=== PATIENT | female | born 1975 | race Caucasian/White ===

== ENCOUNTER 2016-11-11 17:59 | Emergency (ER) | payer BC ==
--- NOTE | 2016-11-11 18:29 | ED ---
Skin/Abscess/FB HPI - General Chief complaint: Skin/Abscess/Foreign Body Stated complaint: abcess Time Seen by Provider: 11/11/16 18:18 Source: patient, RN notes reviewed Mode of arrival: ambulatory Limitations: no limitations - History of Present Illness Initial comments: Patient is a 40-year-old female with chief complaint of abscess underneath her left axilla. Patient reports that she was seen approximately a year ago in the emergency department for the same abscess. Patient reports that she was placed on Bactrim and felt that it was getting better. Patient states that periodically throughout the last year some noticed that the abscess likes to recur and she usually can express the infection out at home by herself. Patient reports that at this time yesterday she was able to express some of the pus however she's feeling slightly feverish and very rundown. Patient reports that she has not taken any Motrin or Tylenol. Patient states that she's had no recent antibiotics for this. She states that she has full range of motion of the arm, but states it is painful whenever she applies pressure over the area. Patient denies any recent chills, shortness of breath, chest pain, back pain, abdominal pain, nausea vomiting, numbness or tingling, dysuria or hematuria, constipation or diarrhea, headaches or visual changes, or any other current symptoms - Related Data Home Medications Medication Instructions Recorded Confirmed Acetaminophen Tab [Tylenol Tab] 650 mg PO Q4H PRN 11/11/16 11/11/16 metFORMIN HCL [Glucophage] 500 mg PO BID 11/11/16 11/11/16 Previous Rx's Medication Instructions Recorded Acetaminophen-Codeine 300-30mg 1 tab PO Q6H PRN #15 tablet 11/11/16 [Tylenol #3] Sulfamethox-Tmp 800-160Mg [Bactrim 2 tab PO Q12HR #40 tab 11/11/16 DS 800-160 mg] Allergies Allergy/AdvReac Type Severity Reaction Status Date / Time No Known Allergies Allergy Verified 11/11/16 18:28 Review of Systems ROS Statement: Those systems with pertinent positive or pertinent negative responses have been documented in the HPI. ROS Other: All systems not noted in ROS Statement are negative. Past Medical History Past Medical History: Diabetes Mellitus History of Any Multi-Drug Resistant Organisms: None Reported Past Surgical History: Cholecystectomy Past Psychological History: No Psychological Hx Reported Smoking Status: Light tobacco smoker Past Alcohol Use History: None Reported Past Drug Use History: None Reported General Exam - General Exam Comments Initial Comments: Patient is a pleasant 40-year-old female with no acute distress. Limitations: no limitations General appearance: alert, in no apparent distress Head exam: Present: atraumatic, normocephalic, normal inspection Eye exam: Present: normal appearance, PERRL, EOMI. Absent: scleral icterus, conjunctival injection, periorbital swelling ENT exam: Present: normal exam, mucous membranes moist Neck exam: Present: normal inspection. Absent: tenderness, meningismus, lymphadenopathy Respiratory exam: Present: normal lung sounds bilaterally. Absent: respiratory distress, wheezes, rales, rhonchi, stridor Cardiovascular Exam: Present: regular rate, normal rhythm, normal heart sounds. Absent: systolic murmur, diastolic murmur, rubs, gallop, clicks GI/Abdominal exam: Present: soft, normal bowel sounds. Absent: distended, tenderness, guarding, rebound, rigid Extremities exam: Present: normal inspection, full ROM, normal capillary refill , other (3 cm abscess over the left axilla.). Absent: tenderness, pedal edema, joint swelling, calf tenderness Back exam: Present: normal inspection Neurological exam: Present: alert, oriented X3, CN II-XII intact Psychiatric exam: Present: normal affect, normal mood Skin exam: Present: warm, dry, intact, normal color, other (3 cm erythematous abscess underneath the left axilla.). Absent: rash Course Vital Signs 11/11/16 18:10 Temperature 98.4 F Pulse Rate 100 Respiratory 20 Rate Blood Pressure 172/72 O2 Sat by Pulse 100 Oximetry Procedures - Incision & Drainage Indication: Abscess Site: upper extremity (Left axilla) Size (cm): 3 Anesthetic Used: benzocaine 0.25% Amount (mLs): 6 I&D Cleaning Method: Chloroprep Sterile Field Used?: Yes Scalpel Used: #11 I&D Drainage Obtained: Pus, Blood Packing: Iodoform Culture Obtained?: Yes Patient Tolerated Procedure: well, no complications Medical Decision Making - Medical Decision Making Patient is a 40-year-old [employer] chief complaint of a abscess that has been reoccurring underneath her left axilla. Patient states last antibiotics for this was over a year ago. Patient was placed on Bactrim double strength 2 tablets BID for the next 10 days. Wound culture was obtained. Patient also be given a prescription for pain medication. Patient advised to follow up with primary care provider in approximately 2 days to have the wound rechecked. I did advise her that there is likely a underlying cyst that may need to be surgically explored. Patient understands treatment plan will comply. Return parameters were discussed. Disposition Clinical Impression: Abscess of left axilla Disposition: HOME SELF-CARE Condition: Good Instructions: Abscess Incision and Drainage (ED) Additional Instructions: Remove the packing in approximately 48 hours. Patient aggressively entire antibiotic prescription and to remain pain medication as prescribed. Patient advised to return to emergency department if any alarming signs or symptoms occur. Follow-up with primary care provider within the next 1-2 days. Prescriptions: Acetaminophen-Codeine 300-30mg [Tylenol #3] 1 tab PO Q6H PRN #15 tablet PRN Reason: Pain Sulfamethox-Tmp 800-160Mg [Bactrim DS 800-160 mg] 2 tab PO Q12HR #40 tab Referrals: Artemio Renee MD [Primary Care Provider] - 1-2 days Time of Disposition: 18:52
[2016-11-11] MEDS ORDERED: SULFAMETH-TMP DS STARTER PACK 2 TAB BTL PO STA (18:39)
[2016-11-11] MEDS ORDERED: ACET/COD 300 MG/30 MG STARTER PACK 6 TAB BTL PO STA (18:50)
[2016-11-11 19:04] VITALS: BP 170/85; PULSE 88; RESP 14; TEMP 98.1
== END 2016-11-11 19:08 | disposition home or self-care (01) ==
LOC: EC 17:59
DX: L02.412 Cutaneous abscess of left axilla (principal); E11.9 Type 2 diabetes mellitus without complications; F17.200 Nicotine dependence, unspecified, uncomplicated; Z79.84 Long term (current) use of oral hypoglycemic drugs
CPT/HCPCS: 10060; 87070; 87205; 99283

== ENCOUNTER 2017-02-22 12:23 | Emergency (ER) | payer BC ==
[2017-02-22 12:28] VITALS: BP 189/80; PULSE 118; RESP 18; TEMP 97.9
--- NOTE | 2017-02-22 13:13 | ED ---
Extremity Problem HPI - General Chief complaint: Extremity Problem,Nontraumatic Stated complaint: Toe Pain Time Seen by Provider: 02/22/17 13:07 Source: patient, RN notes reviewed Mode of arrival: ambulatory Limitations: no limitations - History of Present Illness Initial comments: 41-year-old female presents emergency Department chief complaint left foot fifth digit toe pain. Patient states she noticed pain today and states that she looked down and noticed some bruising. Patient states cannot remember any injury but it is possible she did. Patient denies any open lesions or sores no fevers no chills. The pain does not radiate from her toe. Patient was very concerned because she is diabetic and felt that something may be wrong. Patient 's had no prior diabetic foot infections. Patient states she's had 2 diabetic for last 10 years well controlled - Related Data Home Medications Medication Instructions Recorded Confirmed Acetaminophen Tab [Tylenol Tab] 650 mg PO Q4H PRN 11/11/16 11/11/16 metFORMIN HCL [Glucophage] 500 mg PO BID 11/11/16 11/11/16 Previous Rx's Medication Instructions Recorded Acetaminophen-Codeine 300-30mg 1 tab PO Q6H PRN #15 tablet 11/11/16 [Tylenol #3] Sulfamethox-Tmp 800-160Mg [Bactrim 2 tab PO Q12HR #40 tab 11/11/16 DS 800-160 mg] Allergies Allergy/AdvReac Type Severity Reaction Status Date / Time No Known Allergies Allergy Verified 02/22/17 12:28 Review of Systems ROS Statement: Those systems with pertinent positive or pertinent negative responses have been documented in the HPI. ROS Other: All systems not noted in ROS Statement are negative. Past Medical History Past Medical History: Diabetes Mellitus History of Any Multi-Drug Resistant Organisms: None Reported Past Surgical History: Cholecystectomy Past Psychological History: No Psychological Hx Reported Smoking Status: Light tobacco smoker Past Alcohol Use History: None Reported Past Drug Use History: None Reported General Exam Limitations: no limitations General appearance: alert, in no apparent distress Respiratory exam: Present: normal lung sounds bilaterally. Absent: respiratory distress, wheezes, rales, rhonchi, stridor Cardiovascular Exam: Present: regular rate, normal rhythm, normal heart sounds. Absent: systolic murmur, diastolic murmur, rubs, gallop, clicks Extremities exam: Present: other (Left foot pedal pulses equal bilaterally, there is ecchymosis and moderate tenderness to the fifth digit with no open skin lesions or sores no erythema and no warmth. There is capillary refill which is less than 2 seconds) Skin exam: Present: warm, dry Course Vital Signs 02/22/17 12:24 Temperature 97.9 F Pulse Rate 118 H Respiratory 18 Rate Blood Pressure 189/80 O2 Sat by Pulse 98 Oximetry Medical Decision Making - Medical Decision Making 41-year-old female presented emergency department for left foot toe pain. There is ecchymosis noted and tenderness consistent with contusion. Patient has good vascular flow with no open lesions or sores no evidence of infection. Patient will be treated conservatively with close follow-up in one to days and return parameters were discussed. Disposition Clinical Impression: Toe contusion Disposition: HOME SELF-CARE Condition: Stable Instructions: Contusion in Adults (ED) Additional Instructions: Please return to the Emergency Department if symptoms worsen or any other concerns. Referrals: Artemio Renee MD [Primary Care Provider] - 1-2 days Time of Disposition: 13:45
--- NOTE | 2017-02-22 13:40 | XR ---
EXAMINATION TYPE: XR foot complete LT DATE OF EXAM: 02/22/2017 CLINICAL HISTORY: Left foot in particular fifth toe pain TECHNIQUE: Frontal, lateral, and oblique images of the left foot are obtained. COMPARISON: None FINDINGS: There is no acute fracture/dislocation evident in the left foot. There is marked flexion o r hammertoe type deformity in second through fifth toes making evaluation at this level suboptimal. T here is some varus positioning of distal third through fifth toes. Unfused apophysis near cuboid bone is present. There is moderate to large size inferior calcaneal spur. The overlying soft tissue appe ars unremarkable. IMPRESSION: There is moderate to large size inferior calcaneal spur.
== END 2017-02-22 13:50 | disposition home or self-care (01) ==
LOC: EC 12:23
DX: S90.122A Contusion of left lesser toe(s) without damage to nail, initial encounter (principal); E11.9 Type 2 diabetes mellitus without complications; F17.200 Nicotine dependence, unspecified, uncomplicated; Z79.84 Long term (current) use of oral hypoglycemic drugs; X58.XXXA Exposure to other specified factors, initial encounter
CPT/HCPCS: 99283

== ENCOUNTER 2017-05-19 19:46 | Emergency (ER) | payer BC ==
[2017-05-19] MEDS ORDERED: SODIUM CHLORIDE 0.9% 1,000 ML IV STA (20:07)
[2017-05-19] MEDS ORDERED: DICYCLOMINE 10 MG/ML 2 ML AMP IM STA (20:07)
[2017-05-19 20:44] LABS: Basophils # (A) 0.1 k/uL (0-0.2); Basophils % (A) 1 %; CH 29.7; CHCM 35.5; Eosinophils # (A) 0.3 k/uL (0-0.7); Eosinophils % (A) 3 %; HCT 41.5 % (34.0-46.0); HGB 14.4 gm/dL (11.4-16.0); Luc # (Auto) 0.15; Luc % (Auto) 2; Lymphocytes # (A) 3.2 k/uL (1.0-4.8); Lymphocytes % (A) 33 %; MCH 29.3 pg (25.0-35.0); MCHC 34.8 g/dL (31.0-37.0); MCV 84.1 fL (80.0-100.0); Mean Platelet Volume 7.2; Monocytes # (A) 0.5 k/uL (0-1.0); Monocytes % (A) 5 %; Neutrophils # (A) 5.8 k/uL (1.3-7.7); Neutrophils % (A) 58 %; RBC 4.94 m/uL (3.80-5.40); RDW 14.4 % (11.5-15.5)
[2017-05-19 20:47] LABS: Amorphous Sediment,Urine Occasional /hpf; Appearance,Urine Clear (Clear); Bilirubin,Urine Negative (Negative); Glucose,Urine (UA) 4+ (Negative); Ketones,Urine Negative (Negative); Leukocyte Esterase,Urine Negative (Negative); Mucus,Urine Rare /hpf; Nitrite,Urine Negative (Negative); Particle Count 523; Protein,Urine 1+ (Negative); RBC,Urine 3 /hpf (0-5); Specific Gravity,Urine 1.031 (1.001-1.035); Squamous Epithelial Cell,Urine 1 /hpf (0-4); UA Billing (MACRO vs. MICRO) MICRO; Urobilinogen,Urine <2.0 mg/dL (<2.0); WBC,Urine 1 /hpf (0-5)
[2017-05-19 20:52] LABS: ALT 39 U/L (9-52); AST 17 U/L (14-36); Alkaline Phosphatase 86 U/L (38-126); Amylase 58 U/L (30-110); Anion Gap 10 mmol/L; Blood Urea Nitrogen 11 mg/dL (7-17); Calcium 8.9 mg/dL (8.4-10.2); Carbon Dioxide 21 mmol/L (22-30); Chloride 106 mmol/L (98-107); Glucose 331 mg/dL (74-99); Non-African American GFR(MDRD) >60 (>60 ml/min/1.73 sqM); Potassium 4.1 mmol/L (3.5-5.1); Sodium 137 mmol/L (137-145); Total Bilirubin 0.4 mg/dL (0.2-1.3); Total Protein 6.8 g/dL (6.3-8.2)
[2017-05-19] MEDS ORDERED: RX INFO: IV CONTRAST WAS GIVEN 1 EACH MISC MISCELLANE PRN (20:54)
--- NOTE | 2017-05-19 21:31 | ED ---
General Adult HPI - General Chief complaint: Abdominal Pain Stated complaint: Flank/Back Pain Time Seen by Provider: 05/19/17 19:57 Source: patient, RN notes reviewed Mode of arrival: ambulatory Limitations: no limitations - History of Present Illness Initial comments: 41 yo female presents to the emergency department with a chief complaint of right upper quadrant abdominal pain. Patient states it started on Sunday. Patient states it radiates the right flank. Patient states she started to have nausea today no vomiting. Patient does admit to history of a cholecystectomy. Patient denies any fever chills with this. Patient states the chest chest is constant pain so she was concerned. This been no changes in bowel or bladder habits. Patient states she is not currently having any other symptoms at this time. Patient denies any pain like this in the past. Patient denies any recent fever, chills, shortness of breath, chest pain, back pain, vomiting, numbness or tingling, dysuria or hematuria, constipation or diarrhea, headaches or visual changes, or any other current symptoms. - Related Data Home Medications Medication Instructions Recorded Confirmed metFORMIN HCL [Glucophage] 500 mg PO BID 11/11/16 05/19/17 Previous Rx's Medication Instructions Recorded Ondansetron Odt [Zofran ODT] 4 mg PO Q8HR PRN #20 tab 05/19/17 Allergies Allergy/AdvReac Type Severity Reaction Status Date / Time No Known Allergies Allergy Verified 05/19/17 19:50 Review of Systems ROS Statement: Those systems with pertinent positive or pertinent negative responses have been documented in the HPI. ROS Other: All systems not noted in ROS Statement are negative. Past Medical History Past Medical History: Diabetes Mellitus History of Any Multi-Drug Resistant Organisms: None Reported Past Surgical History: Cholecystectomy Past Psychological History: No Psychological Hx Reported Smoking Status: Current every day smoker Past Alcohol Use History: None Reported Past Drug Use History: None Reported General Exam - General Exam Comments Initial Comments: General: The patient is awake and alert, in no distress, and does not appear acutely ill. Eye: Pupils are equal, round and reactive to light, extra-ocular movements are intact; there is normal conjunctiva bilaterally. No signs of icterus. Ears, nose, mouth and throat: There are moist mucous membranes and no oral lesions. Neck: The neck is supple, there is no tenderness. Cardiovascular: There is a regular rate and rhythm. No murmur, rub or gallop is appreciated. Respiratory: Lungs are clear to auscultation, respirations are non-labored, breath sounds are equal. No wheezes, stridor, rales, or rhonchi. Gastrointestinal: Soft, non-distended, mild right upper quadrant tenderness of the abdomen without masses or organomegaly noted. There is no rebound or guarding present. No CVA tenderness. Bowel sounds are unremarkable. Back: There is no tenderness to palpation in the midline. There is no obvious deformity. No rashes noted. Musculoskeletal: Normal ROM, no tenderness, There is no pedal edema. There is no calf tenderness or swelling. Sensation intact. Pulses equal bilaterally 2+. Neurological: CN II-XII intact, There are no obvious motor or sensory deficits. Coordination appears grossly intact. Speech is normal. Skin: Skin is warm and dry and no rashes or lesions are noted. Psychiatric: Cooperative, appropriate mood & affect, normal judgment. Limitations: no limitations Course Vital Signs 05/19/17 05/19/17 05/19/17 19:46 20:50 21:54 Temperature 98.7 F Pulse Rate 105 H 78 91 Respiratory 16 18 18 Rate Blood Pressure 202/86 136/63 195/81 O2 Sat by Pulse 99 100 Oximetry Medical Decision Making - Medical Decision Making 41-year-old female presents for right upper quadrant abdominal pain. This time patient is found be hyperglycemic she did not take her metformin today. We discussed that she does need to use this on a regular basis. Patient's lab work and CAT scanreviewed and negative. At this time we did discuss pain medication at home. We'll give her nausea medication for home. We did discuss close follow-up with her doctor we discussed return parameters all the questions. She stated that she understood and she is planned she'll be discharged home. - Lab Data Result diagrams: 05/19/17 20:24 05/19/17 20:24 Lab Results 05/19/17 05/19/17 05/19/17 Range/Units 20:24 20:24 20:24 WBC 10.0 (3.8-10.6) k/uL RBC 4.94 (3.80-5.40) m/uL Hgb 14.4 (11.4-16.0) gm/dL Hct 41.5 (34.0-46.0) % MCV 84.1 (80.0-100.0) fL MCH 29.3 (25.0-35.0) pg MCHC 34.8 (31.0-37.0) g/dL RDW 14.4 (11.5-15.5) % Plt Count 288 (150-450) k/uL Neutrophils % 58 % Lymphocytes % 33 % Monocytes % 5 % Eosinophils % 3 % Basophils % 1 % Neutrophils # 5.8 (1.3-7.7) k/uL Lymphocytes # 3.2 (1.0-4.8) k/uL Monocytes # 0.5 (0-1.0) k/uL Eosinophils # 0.3 (0-0.7) k/uL Basophils # 0.1 (0-0.2) k/uL Sodium 137 (137-145) mmol/L Potassium 4.1 (3.5-5.1) mmol/L Chloride 106 (98-107) mmol/L Carbon Dioxide 21 L (22-30) mmol/L Anion Gap 10 mmol/L BUN 11 (7-17) mg/dL Creatinine 0.44 L (0.52-1.04) mg/dL Est GFR (MDRD) Af Amer >60 (>60 ml/min/1.73 sqM) Est GFR (MDRD) Non-Af >60 (>60 ml/min/1.73 sqM) Glucose 331 H (74-99) mg/dL POC Glucose (mg/dL) (75-99) mg/dL POC Glu Customer Contact Representative ID Calcium 8.9 (8.4-10.2) mg/dL Total Bilirubin 0.4 (0.2-1.3) mg/dL AST 17 (14-36) U/L ALT 39 (9-52) U/L Alkaline Phosphatase 86 (38-126) U/L Total Protein 6.8 (6.3-8.2) g/dL Albumin 3.9 (3.5-5.0) g/dL Amylase 58 (30-110) U/L Lipase 186 (23-300) U/L Urine Color Urine Appearance (Clear) Urine pH (5.0-8.0) Ur Specific [place] (1.001-1.035) Urine Protein (Negative) Urine Glucose (UA) (Negative) Urine Ketones (Negative) Urine Blood (Negative) Urine Nitrite (Negative) Urine Bilirubin (Negative) Urine Urobilinogen (<2.0) mg/dL Ur Leukocyte Esterase (Negative) Urine RBC (0-5) /hpf Urine WBC (0-5) /hpf Ur Squamous Epith Cells (0-4) /hpf Amorphous Sediment (None) /hpf Urine Mucus (None) /hpf Urine HCG, Qual Not Detected (Not Detectd) 05/19/17 05/19/17 Range/Units 20:24 21:40 WBC (3.8-10.6) k/uL RBC (3.80-5.40) m/uL Hgb (11.4-16.0) gm/dL Hct (34.0-46.0) % MCV (80.0-100.0) fL MCH (25.0-35.0) pg MCHC (31.0-37.0) g/dL RDW (11.5-15.5) % Plt Count (150-450) k/uL Neutrophils % % Lymphocytes % % Monocytes % % Eosinophils % % Basophils % % Neutrophils # (1.3-7.7) k/uL Lymphocytes # (1.0-4.8) k/uL Monocytes # (0-1.0) k/uL Eosinophils # (0-0.7) k/uL Basophils # (0-0.2) k/uL Sodium (137-145) mmol/L Potassium (3.5-5.1) mmol/L Chloride (98-107) mmol/L Carbon Dioxide (22-30) mmol/L Anion Gap mmol/L BUN (7-17) mg/dL Creatinine (0.52-1.04) mg/dL Est GFR (MDRD) Af Amer (>60 ml/min/1.73 sqM) Est GFR (MDRD) Non-Af (>60 ml/min/1.73 sqM) Glucose (74-99) mg/dL POC Glucose (mg/dL) 291 H (75-99) mg/dL POC Glu Customer Contact Representative ID Kiley Song Calcium (8.4-10.2) mg/dL Total Bilirubin (0.2-1.3) mg/dL AST (14-36) U/L ALT (9-52) U/L Alkaline Phosphatase (38-126) U/L Total Protein (6.3-8.2) g/dL Albumin (3.5-5.0) g/dL Amylase (30-110) U/L Lipase (23-300) U/L Urine Color Light Yellow Urine Appearance Clear (Clear) Urine pH 6.0 (5.0-8.0) Ur Specific [place] 1.031 (1.001-1.035) Urine Protein 1+ H (Negative) Urine Glucose (UA) 4+ H (Negative) Urine Ketones Negative (Negative) Urine Blood Negative (Negative) Urine Nitrite Negative (Negative) Urine Bilirubin Negative (Negative) Urine Urobilinogen <2.0 (<2.0) mg/dL Ur Leukocyte Esterase Negative (Negative) Urine RBC 3 (0-5) /hpf Urine WBC 1 (0-5) /hpf Ur Squamous Epith Cells 1 (0-4) /hpf Amorphous Sediment Occasional H (None) /hpf Urine Mucus Rare H (None) /hpf Urine HCG, Qual (Not Detectd) - Radiology Data Radiology results: report reviewed, image reviewed Disposition Clinical Impression: Right upper quadrant abdominal pain Disposition: HOME SELF-CARE Condition: Stable Instructions: Abdominal Pain (ED) Additional Instructions: Please use medication as discussed. Please follow up with family doctor if symptoms have not improved over the next two days. Please return to the emergency room if your symptoms increase or worsen or for any other concerns. Prescriptions: Ondansetron Odt [Zofran ODT] 4 mg PO Q8HR PRN #20 tab PRN Reason: Nausea Referrals: Artemio Renee MD [Primary Care Provider] - 1-2 days Time of Disposition: 22:00
[2017-05-19 21:44] LABS: Glucose,Whole Blood 291 mg/dL (75-99)
--- NOTE | 2017-05-19 21:51 | CT ---
EXAMINATION TYPE: CT abdomen pelvis w con DATE OF EXAM: 05/19/2017 HISTORY: Patient complains of RUQ pain. CT DLP: 1891.6mGycm Automated Exposure Control for Dose Reduction was Utilized. CONTRAST: CT scan of the abdomen and pelvis is performed without oral but with IV Contrast, patient injected wi th 100 mL of Omnipaque 300. COMPARISON: None. FINDINGS: LUNG BASES: No significant abnormality is appreciated. LIVER/GB: Cholecystectomy clips are noted. Liver is diffusely low dense suggesting fatty infiltration . PANCREAS: No significant abnormality is seen. SPLEEN: No significant abnormality is seen. ADRENALS: No significant abnormality is seen. KIDNEYS: No significant abnormality is seen. BOWEL: Some fecal material is seen in the distal ileum. There is no suspicious small or large bowel d ilatation. CT findings consistent with delayed passage of ingested material to colonic level. Normal- appearing appendix is seen best on coronal image 52. UTERUS/ADNEXA: Uterus is anteverted in shape and not suspiciously enlarged. Both ovaries are seen. Wi thin left ovary there is 2.7 x 2.5 cm low dense lesion could reflect simple small ovarian cyst. This could be further investigated with pelvic ultrasound if desired. LYMPH NODES: No greater than 1cm abdominal or pelvic lymph nodes are appreciated. OSSEOUS STRUCTURES: There is moderate disc space narrowing at lumbosacral junction. There is moderate multilevel spurring in the thoracic spine. OTHER: No significant additional abnormality is seen. IMPRESSION: No significant acute finding is seen to account for patient's clinical symptoms.
[2017-05-19] MEDS ORDERED: KETOROLAC 30 MG/ML 1 ML VIAL IVP STA (21:58)
[2017-05-19 22:17] VITALS: BP 144/98; PULSE 86; RESP 20; TEMP 98.3
== END 2017-05-19 22:15 | disposition home or self-care (01) ==
LOC: EC 19:46
DX: R10.11 Right upper quadrant pain (principal); R11.0 Nausea; E11.9 Type 2 diabetes mellitus without complications; F17.200 Nicotine dependence, unspecified, uncomplicated; Z79.84 Long term (current) use of oral hypoglycemic drugs; Z90.49 Acquired absence of other specified parts of digestive tract
CPT/HCPCS: 36415; 80053; 82150; 83690; 85025; 81001; 81025; 87086; 74177; 99284; 96374; 96361; 96372; J0500; J1885; Q9967

== ENCOUNTER 2017-09-04 14:35 | Emergency (ER) | payer BC ==
[2017-09-04 14:42] VITALS: BP 172/73; PULSE 117; RESP 20; TEMP 100.9
[2017-09-04] MEDS ORDERED: ACETAMINOPHEN TAB 500 MG TAB PO STA (14:47)
--- NOTE | 2017-09-04 14:49 | ED ---
URI HPI - General Chief Complaint: Upper Respiratory Infection Stated Complaint: Cold/flu Time Seen by Provider: 09/04/17 14:43 Source: patient, RN notes reviewed Mode of arrival: ambulatory Limitations: no limitations - History of Present Illness Initial Comments: 41-year-old female presents emergency Department chief complaint cough, runny nose fever. Patient states that symptoms are last few days progressively getting worse. She did state initially started a sore throat the sore throat is improving and progress to sinus congestion sinus pressure and a cough. She states cough is primarily dry sometimes productive. Patient states she stopped smoking 3 months ago. Patient has no chest pain or shortness of breath. She has been taken Tylenol for her fever since yesterday but has not taken a dose since this morning. Patient states her had some her symptoms though he is improving. Patient has also tried [id number] Mucinex with no relief. Patient denies neck pain and neck stiffness - Related Data Home Medications Medication Instructions Recorded Confirmed metFORMIN HCL 1,000 mg PO BID 09/04/17 09/04/17 Previous Rx's Medication Instructions Recorded Levofloxacin [Levaquin] 500 mg PO DAILY #10 tab 09/04/17 Allergies Allergy/AdvReac Type Severity Reaction Status Date / Time No Known Allergies Allergy Verified 09/04/17 15:10 Review of Systems ROS Statement: Those systems with pertinent positive or pertinent negative responses have been documented in the HPI. ROS Other: All systems not noted in ROS Statement are negative. Past Medical History Past Medical History: Diabetes Mellitus History of Any Multi-Drug Resistant Organisms: None Reported Past Surgical History: Cholecystectomy Past Psychological History: No Psychological Hx Reported Smoking Status: Former smoker Past Alcohol Use History: None Reported Past Drug Use History: None Reported General Exam Limitations: no limitations General appearance: alert, in no apparent distress Head exam: Present: atraumatic, normocephalic, normal inspection Eye exam: Present: normal appearance, PERRL, EOMI. Absent: scleral icterus, conjunctival injection, periorbital swelling ENT exam: Present: mucous membranes moist, TM's normal bilaterally, normal external ear exam, other (Sinus tenderness). Absent: normal oropharynx ( Postnasal drainage) Neck exam: Present: normal inspection, full ROM. Absent: tenderness, meningismus, lymphadenopathy Respiratory exam: Present: normal lung sounds bilaterally. Absent: respiratory distress, wheezes, rales, rhonchi, stridor Cardiovascular Exam: Present: normal rhythm, tachycardia, normal heart sounds. Absent: systolic murmur, diastolic murmur, rubs, gallop, clicks Skin exam: Present: warm, dry, intact, normal color. Absent: rash Course Vital Signs 09/04/17 14:40 Temperature 100.9 F H Pulse Rate 117 H Respiratory 20 Rate Blood Pressure 172/73 O2 Sat by Pulse 99 Oximetry Medical Decision Making - Medical Decision Making 41-year-old female presented emergency Department chief complaint cold-like symptoms. Patient's x-ray shows developing pneumonia. Patient started on Levaquin. Return parameters were discussed. - Lab Data Lab Results 09/04/17 Range/Units 14:45 Influenza Type A RNA Not Detected (Not Detectd) Influenza Type B (PCR) Not Detected (Not Detectd) Disposition Clinical Impression: Pneumonia Disposition: HOME SELF-CARE Condition: Stable Instructions: Bacterial Pneumonia (ED) Additional Instructions: Please return to the Emergency Department if symptoms worsen or any other concerns. Prescriptions: Levofloxacin [Levaquin] 500 mg PO DAILY #10 tab Referrals: Artemio Renee MD [Primary Care Provider] - 1-2 days Time of Disposition: 15:28
--- NOTE | 2017-09-04 15:04 | XR ---
EXAMINATION TYPE: XR chest 2V DATE OF EXAM: 09/04/2017 CLINICAL HISTORY: Cough TECHNIQUE: Frontal and lateral views of the chest are obtained. COMPARISON: None FINDINGS: Left lower lobe increased density noted.Which may reflect developing pneumonia. Correlate c linically. The cardiac silhouette size is within normal limits. The osseous structures are intact. IMPRESSION: Suspected developing left lower lobe pneumonia.
== END 2017-09-04 15:29 | disposition home or self-care (01) ==
LOC: EC 14:35
DX: J18.9 Pneumonia, unspecified organism (principal); E11.9 Type 2 diabetes mellitus without complications; Z87.891 Personal history of nicotine dependence; Z79.84 Long term (current) use of oral hypoglycemic drugs
CPT/HCPCS: 71020; 87502; 99283

== ENCOUNTER 2017-11-16 14:01 | Emergency (ER) | payer BC ==
--- NOTE | 2017-11-16 15:24 | ED ---
General Adult HPI - General Chief complaint: Back Pain/Injury Stated complaint: Back pain Time Seen by Provider: 11/16/17 15:05 Source: patient, RN notes reviewed Mode of arrival: wheelchair Limitations: no limitations - History of Present Illness Initial comments: 41 year old pleasant female presents to the emergency Department today for back pain 3 days. She states that 3 days ago she noticed shooting pains going across her back laterally and had her look at the affected area. He noticed a small nodule by her right shoulder blade. She says the pain is worse when she bends or twists her back or when pressure pressure is applied to the nodule. She has never had a nodule like this before. She has taken ibuprofen with relief as well as applied heat to the area. Patient was concerned about what the nodule could potentially be. She denies any numbness or tingling in upper extremities. Denies any pain in the lower back or neck. Denies any change in bladder or bowel function. - Related Data Home Medications Medication Instructions Recorded Confirmed metFORMIN HCL 1,000 mg PO BID 09/04/17 09/04/17 Previous Rx's Medication Instructions Recorded Levofloxacin [Levaquin] 500 mg PO DAILY #10 tab 09/04/17 Allergies Allergy/AdvReac Type Severity Reaction Status Date / Time No Known Allergies Allergy Verified 11/16/17 14:34 Review of Systems ROS Statement: Those systems with pertinent positive or pertinent negative responses have been documented in the HPI. ROS Other: All systems not noted in ROS Statement are negative. Past Medical History Past Medical History: Diabetes Mellitus History of Any Multi-Drug Resistant Organisms: None Reported Past Surgical History: Cholecystectomy Past Psychological History: No Psychological Hx Reported Smoking Status: Former smoker Past Alcohol Use History: None Reported Past Drug Use History: None Reported General Exam Limitations: no limitations General appearance: alert, in no apparent distress Head exam: Present: atraumatic, normocephalic, normal inspection Neck exam: Present: normal inspection. Absent: tenderness, meningismus, lymphadenopathy Respiratory exam: Present: normal lung sounds bilaterally. Absent: respiratory distress, wheezes, rales, rhonchi, stridor Cardiovascular Exam: Present: regular rate, normal rhythm, normal heart sounds. Absent: systolic murmur, diastolic murmur, rubs, gallop, clicks Extremities exam: Present: normal inspection, full ROM, normal capillary refill , other (pulse is 5/5 in right radial paulse). Absent: tenderness, pedal edema , joint swelling, calf tenderness Back exam: Present: full ROM, tenderness, other (1.5 cm mobile, non -fluctuant nodule felt medial to the right shoulder blade. No redness, swelling, drainage. ). Absent: CVA tenderness (R), CVA tenderness (L), muscle spasm, paraspinal tenderness, vertebral tenderness, rash noted Neurological exam: Present: alert, oriented X3 Psychiatric exam: Present: normal affect, normal mood Skin exam: Present: warm, dry, intact, normal color. Absent: rash Course Vital Signs 11/16/17 14:32 Temperature 97.8 F Pulse Rate 97 Respiratory 20 Rate Blood Pressure 181/75 O2 Sat by Pulse 96 Oximetry Medical Decision Making - Medical Decision Making 41-year-old female presents to the emergency department for a 1.5 cm nodule in the right back medial to the right shoulder blade. Patient states she noticed it 3 days ago when she had pain with movement such as twisting and bending as well as pain with pressure to the nodule. Patient states pain is relieved with using ibuprofen scheduled every 8 hours. She agrees to continue this pain regimen as well as using warm compresses until she can follow up. Patient will then be referred to dermatology or Gen. surgery for removal and identification of the mass. Spoke with Dr. Mccracken who agreed with this course of action. Disposition Clinical Impression: Mass Disposition: HOME SELF-CARE Instructions: Back Pain (ED) Additional Instructions: Continue ibuprofen scheduled every 8 hours as needed for pain. Use warm compresses for pain as well. Follow up with either dermatology or Gen. surgery. Referrals: Chuy Mcneal DO [Primary Care Provider] - 1-2 days Tavares Soriano DO [Doctor of Osteopathic Medicine] - 1-2 days Micha Chang MD [STAFF PHYSICIAN] - 1-2 days Time of Disposition: 15:34
[2017-11-16 15:41] VITALS: BP 170/80; PULSE 90; RESP 18; TEMP 98
== END 2017-11-16 15:30 | disposition home or self-care (01) ==
LOC: EC 14:01
DX: R22.2 Localized swelling, mass and lump, trunk (principal); M54.9 Dorsalgia, unspecified; E11.9 Type 2 diabetes mellitus without complications; Z87.891 Personal history of nicotine dependence; Z79.84 Long term (current) use of oral hypoglycemic drugs
CPT/HCPCS: 99283

== ENCOUNTER 2017-11-19 17:35 | Observation (INO) | payer BC ==
[2017-11-19] MEDS ORDERED: ASPIRIN 81 MG PO STA (18:02)
[2017-11-19] MEDS ORDERED: RX INFO: IV CONTRAST WAS GIVEN 1 EACH MISC MISCELLANE PRN (18:03)
--- NOTE | 2017-11-19 18:40 | ED ---
Chest Pain HPI - General Chief Complaint: Chest Pain Stated Complaint: Back pain, chest pain Time Seen by Provider: 11/19/17 17:46 Source: patient, RN notes reviewed Mode of arrival: ambulatory Limitations: no limitations - History of Present Illness Initial Comments: 41-year-old female presents emergency Department chief complaint of chest pain and back pain. Patient states symptoms have been present for several days. Patient states she was seen here other day or so his muscle skeletal pain. Patient states symptoms worsened today stating that she sneezes she has severe sharp stabbing pain and return back to her chest. States he feels like behind her left breast. She's had no prior cardiac issues. Patient is a diabetic no known hyperlipidemia. Patient has not taken medication for high blood pressure though she is slightly hypertensive here. Patient states that when the pain is present she does have some shortness of breath. Denies any leg swelling, leg pain. No history of DVT or PE. Patient takes metformin currently. Patient does have cardiac disease she states her mother had an ID and cardiac arrest. - Related Data Home Medications Medication Instructions Recorded Confirmed metFORMIN HCL 1,000 mg PO BID 09/04/17 11/19/17 Allergies Allergy/AdvReac Type Severity Reaction Status Date / Time No Known Allergies Allergy Verified 11/19/17 18:14 Review of Systems ROS Statement: Those systems with pertinent positive or pertinent negative responses have been documented in the HPI. ROS Other: All systems not noted in ROS Statement are negative. EKG Findings - EKG Comments: EKG Findings:: EKG performed at 18:04 sinus tachycardia with rate of 107 [place] 152 QRS 82 QT/QTC 348/464 Past Medical History Past Medical History: Diabetes Mellitus History of Any Multi-Drug Resistant Organisms: None Reported Past Surgical History: Cholecystectomy Past Psychological History: No Psychological Hx Reported Smoking Status: Former smoker Past Alcohol Use History: None Reported Past Drug Use History: None Reported General Exam Limitations: no limitations Course Vital Signs 11/19/17 11/19/17 17:47 18:38 Temperature 98.2 F Pulse Rate 88 96 Respiratory 18 18 Rate Blood Pressure 188/84 191/77 O2 Sat by Pulse 98 97 Oximetry Chest Pain MDM - MDM 5-year-old female presented for back and chest pain. Patient's CT does not show any evidence of PE or aortic dissection. Patient be held for repeat cardiac enzymes. Patient treated for blood pressure. Disposition Clinical Impression: Chest pain, Back pain Disposition: ADMITTED IP TO THIS [facility] Condition: Stable Referrals: Chuy Mcneal DO [Primary Care Provider] - 1-2 days
[2017-11-19 18:55] LABS: Basophils # (A) 0.1 k/uL (0-0.2); Basophils % (A) 1 %; Eosinophils # (A) 0.2 k/uL (0-0.7); Eosinophils % (A) 2 %; HCT 43.2 % (34.0-46.0); HGB 14.7 gm/dL (11.4-16.0); Lymphocytes % (A) 38 %; MCH 27.8 pg (25.0-35.0); MCHC 34.1 g/dL (31.0-37.0); MCV 81.7 fL (80.0-100.0); Mean Platelet Volume 6.4; Monocytes # (A) 0.5 k/uL (0-1.0); Monocytes % (A) 6 %; Neutrophils # (A) 4.1 k/uL (1.3-7.7); Neutrophils % (A) 51 %; Platelet Count 323 k/uL (150-450); RBC 5.28 m/uL (3.80-5.40); RDW 13.4 % (11.5-15.5)
[2017-11-19 19:00] LABS: ALT 43 U/L (9-52); AST 18 U/L (14-36); Albumin 4.2 g/dL (3.5-5.0); Alkaline Phosphatase 88 U/L (38-126); Anion Gap 13 mmol/L; Blood Urea Nitrogen 11 mg/dL (7-17); Calcium 9.6 mg/dL (8.4-10.2); Carbon Dioxide 22 mmol/L (22-30); Chloride 102 mmol/L (98-107); Glucose 314 mg/dL (74-99); Lipase 88 U/L (23-300); Magnesium 1.6 mg/dL (1.6-2.3); Potassium 4.1 mmol/L (3.5-5.1); Sodium 137 mmol/L (137-145); Total Bilirubin 0.5 mg/dL (0.2-1.3); Total Protein 7.1 g/dL (6.3-8.2)
[2017-11-19 19:04] LABS: Partial Thromboplastin Time 23.9 sec (22.0-30.0)
[2017-11-19 19:38] LABS: Creatine Kinase 48 U/L (30-135)
[2017-11-19 19:50] LABS: Creatine Kinase MB 0.3 ng/mL (0.0-2.4); Troponin I <0.012 ng/mL (0.000-0.034)
--- NOTE | 2017-11-19 20:01 | XR ---
EXAMINATION TYPE: XR chest 2V DATE OF EXAM: 11/19/2017 COMPARISON: 09/04/2017 INDICATION: Chest pain TECHNIQUE: Frontal and lateral views of the chest are obtained. FINDINGS: The heart size is normal. The pulmonary vasculature is normal. The lungs are clear. IMPRESSION: 1. No acute pulmonary process.
--- NOTE | 2017-11-19 20:20 | CT ---
CT CHEST FOR PULMONARY EMBOLISM. EXAMINATION TYPE: CT angio chest DATE OF EXAM: 11/19/2017 INDICATION: Back pain and Shortness of breath CT DLP: 783.7 mGycm, Automated exposure control for dose reduction was used. CONTRAST: Patient injected with 100 mL of Omnipaque 350. COMPARISON: NONE TECHNIQUE: CT of the chest is performed on a spiral scan at 2 mm thick sections. Study is performed with intravenous contrast timed for evaluation for pulmonary embolism. This will limit additional po rtions of the evaluation. 3-D MIP images reconstructed by the technologist are reviewed on the compu ter in the coronal and sagittal planes. There is limitation at the timing of the contrast with greate r contrast within the aorta than the pulmonary arteries. FINDINGS: No obvious embolism is evident. No aortic dissection is evident. There is a 1.1 cm lymph node adjacent to the ascending thoracic aorta near the level of the arch. Add itional smaller lymph nodes are adjacent. Some small infrahilar adenopathy may be present bilaterall y. Enlarged hilar adenopathy is not evident. The ascending aorta diameter at the level of the main pu lmonary artery is 3.3 cm. The main pulmonary artery diameter at the bifurcation is 2.5 cm. Some faint groundglass opacities in the posterior lateral left lung base. Limited CT section through the upper abdomen are unremarkable. IMPRESSIONS: 1. No acute pulmonary embolism. 2. An enlarged lymph node adjacent to the ascending thoracic aorta adjacent to the aortic arch. Addit ional scattered small lymph nodes are present.
[2017-11-19] MEDS ORDERED: MORPHINE SULFATE 4 MG/ML SYRINGE IVP ONE (20:42)
[2017-11-19] MEDS ORDERED: ONDANSETRON 4 MG/2 ML VIAL IVP STA (20:43)
[2017-11-19] MEDS ORDERED: HEPARIN SODIUM,PORCINE 5,000 UNIT/ML 1 ML VIAL IV ONE (20:44)
[2017-11-19] MEDS ORDERED: NITROGLYCERIN SL TABS 0.4 MG TAB SUBLINGUAL PRN (20:44)
[2017-11-19] MEDS ORDERED: HEPARIN SOD,PORK IN 0.45% NACL 25,000 UNIT in 0.45% NACL 1 500ML.BAG IV SCH (20:45)
[2017-11-19] MEDS ORDERED: METOPROLOL TARTRATE 25 MG TAB PO STA (20:46)
[2017-11-19] MEDS ORDERED: METOPROLOL TARTRATE 25 MG TAB PO SCH (21:00)
[2017-11-19 22:10] LABS: Glucose,Whole Blood 239 mg/dL (75-99)
[2017-11-19 22:30] VITALS: BMI 41.1
[2017-11-19] MEDS: HYDROmorphone 2 MG TAB PO PRN (23:58)
[2017-11-20 00:42] LABS: Creatine Kinase 31 U/L (30-135)
[2017-11-20 00:55] LABS: Creatine Kinase MB <0.2 ng/mL (0.0-2.4); Troponin I <0.012 ng/mL (0.000-0.034)
[2017-11-20] MEDS: HYDROmorphone 2 MG TAB PO PRN ×2 (05:56→13:21)
[2017-11-20 06:55] LABS: Cholesterol 187 mg/dL (<200); HDL Cholesterol 58 mg/dL (40-60); LDL Cholesterol,Calculated 78 mg/dL (0-99); Triglycerides 255 mg/dL (<150)
[2017-11-20 06:55] LABS: Glucose,Whole Blood 248 mg/dL (75-99)
[2017-11-20 07:14] LABS: Creatine Kinase 28 U/L (30-135)
[2017-11-20 07:28] LABS: Creatine Kinase MB <0.2 ng/mL (0.0-2.4); Troponin I <0.012 ng/mL (0.000-0.034)
[2017-11-20 07:38] VITALS: RESP 18
[2017-11-20] MEDS ORDERED: KETOROLAC 30 MG/ML 1 ML VIAL IM ONE (08:07)
[2017-11-20] MEDS ORDERED: ASPIRIN 325 MG TAB PO SCH (09:00)
[2017-11-20] MEDS ORDERED: ASPIRIN 81 MG PO SCH (09:00)
[2017-11-20] MEDS ORDERED: LISINOPRIL 5 MG TAB PO SCH (09:45)
--- NOTE | 2017-11-20 10:41 | P.HPIM ---
History of Present Illness H&P Date: 11/20/17 Chief Complaint: Chest pain 41-year-old who presented to the emergency room with a chief complaint of chest pain and back pain. Patient states she has had these symptoms for several days but they do not seem to be improving. The patient states that she was sneezing yesterday and the pain significantly increased. The patient describes the pain as a sharp stabbing pain. The patient did have slight shortness of breath associated with the pain. Her blood pressure was elevated in the emergency room with readings of 188/84 and 191/77 which has since improved. Blood pressure this morning is 144/79. Denied dizziness or lightheadedness. Denies nausea or vomiting. The patient has a history of diabetes mellitus. She has underwent a cholecystectomy. She is a former cigarette smoker. Chest x-ray: Negative for an acute process CTA of the chest: Negative for pulmonary embolus. EKG: Sinus tachycardia. Rate 107. Laboratory data: WBC 8.0. Hemoglobin 14.7. Platelet count 323. Sodium 137. Potassium 4.1. BUN 11. Creatinine 0.34. Glucose 314. Magnesium 1.6. LFTs and pancreatic enzymes within normal limits The patient was admitted to the hospital under the care of Dr. Mcneal for observation. Consultations were placed to cardiology. Review of Systems GENERAL: Patient denies fever. Denies chills. EYES: Denies blurred vision. Denies vision changes. Denies eye pain. EARS, NOSE, MOUTH, & THROAT: Denies headache. Denies sore throat. Denies ear pain. RESPIRATORY: Positive for shortness of breath when pain was intense. Currently denies shortness of breath. Denies cough. Denies sputum production. Denies hemoptysis. CARDIOVASCULAR: Positive for chest pain yesterday, but currently denies chest pain or pressure. Denies arrhythmias. GASTROINTESTINAL: Denies abdominal pain. Denies diarrhea. Denies constipation. Denies nausea. Denies vomiting. Denies heartburn. Denies blood in the stool. GENITOURINARY: Denies urinary frequency. Denies burning. Denies dysuria. Denies cloudy urine. Denies blood in the urine. MUSCULOSKELETAL: Positive for back pain. Denies myalgias. Denies joint swelling. Denies decreased range of motion beyond patients baseline. INTEGUMENTARY: Denies pruitis. Denies rash. PSYCHIATRIC: Denies suicidal or homicial ideations. ENDOCRINE: Denies weight change. Denies polydipsia. Denies polyuria. HEMATOLOGIC: Denies bleeding disorders. Past Medical History Past Medical History: Diabetes Mellitus History of Any Multi-Drug Resistant Organisms: None Reported Past Surgical History: Cholecystectomy Past Anesthesia/Blood Transfusion Reactions: No Reported Reaction Past Psychological History: No Psychological Hx Reported Smoking Status: Former smoker Past Alcohol Use History: None Reported Past Drug Use History: None Reported - Past Family History Mother Family Medical History: Cancer Additional Family Medical History / Comment(s): lung cancer - at 49 Medications and Allergies Home Medications Medication Instructions Recorded Confirmed Type metFORMIN HCL 1,000 mg PO BID 09/04/17 11/19/17 History Allergies Allergy/AdvReac Type Severity Reaction Status Date / Time No Known Allergies Allergy Verified 11/19/17 18:14 Physical Exam Vitals: Vital Signs Temp Pulse Pulse Resp BP BP Pulse Ox 11/20/17 07:36 98.1 F 89 18 144/79 98 11/20/17 03:47 97.8 F 85 16 144/77 94 L 11/20/17 03:17 80 16 11/19/17 23:37 164/79 11/19/17 23:04 95 16 11/19/17 22:11 97.9 F 90 16 169/90 94 L 11/19/17 21:26 97.2 F L 96 18 153/88 98 11/19/17 20:44 92 18 175/87 97 11/19/17 18:38 96 18 191/77 97 11/19/17 17:47 98.2 F 88 18 188/84 98 Intake and Output 11/19/17 11/20/17 11/20/17 22:59 06:59 14:59 Intake Total 149.667 Balance 149.667 Intake: Intake, IV Titration 149.667 Amount Heparin Sod,Pork in 0.45% 149.667 NaCl 25,000 unit In 0.45 % NaCl 1 500ml.bag @ 9.2 UNITS/KG/HR 20.03 mls/hr IV .Q24H [facility] Rx#: [id number] Other: # Voids 1 3 Weight 113.8 kg GENERAL: This is a 41-year-old female in no apparent distress at the time of examination. Pleasant and cooperative. HEENT: Head is atraumatic, normocephalic. Pupils are equal, round, and reactive to light. Sclerae anicteric. Conjunctivae are clear. Mucus membranes of the mouth are moist. Neck is supple. RESPIRATORY: Clear to ausculation. No wheezes, rales, or rhonchi. No use of accessory muscles. Patient maintaining oxygen saturation greater than 92%. No chest wall tenderness is noted on palpation or with deep breathing. CARDIOVASCULAR: Regular rate and rhythm. S1 and S2 noted. No systolic or diastolic murmur auscultated. No JVD noted. No S3 or S4 noted. GASTROINTESTINAL: No distention noted. Abdomen soft and round. Normal active bowel sounds auscultated x 4 quadrants. No pain or tenderness noted upon palpation. INTEGUMENTARY: No cyanosis. No jaundice. No rashes noted. No cellulitis noted. EXTREMITIES: 2+ peripheral pulses. No evidence of peripheral edema. No calf tenderness noted. NEUROLOGIC: Cranial nerves II-XII intact. PSYCHIATRIC: Awake, alert, and oriented X 3. Appropriate affect. Intact judgement and insight. Results CBC & Chem 7: 11/19/17 18:34 11/19/17 18:34 Labs: Abnormal Lab Results - Last 24 Hours (Table) 11/19/17 11/19/17 11/20/17 Range/Units 18:34 22:07 06:11 Creatinine 0.34 L (0.52-1.04) mg/dL Glucose 314 H (74-99) mg/dL POC Glucose (mg/dL) 239 H (75-99) mg/dL Total Creatine Kinase 28 L (30-135) U/L Triglycerides (<150) mg/dL 11/20/17 11/20/17 Range/Units 06:11 06:52 Creatinine (0.52-1.04) mg/dL Glucose (74-99) mg/dL POC Glucose (mg/dL) 248 H (75-99) mg/dL Total Creatine Kinase (30-135) U/L Triglycerides 255 H (<150) mg/dL Thrombosis Risk Factor Assmnt - Choose All That Apply Each Factor Represents 1 point: Obesity (BMI >25) Thrombosis Risk Factor Assessment Total Risk Factor Score: 1 Thrombosis Risk Factor Assessment Level: Low Risk Assessment and Plan Plan: ASSESSMENT: Chest pain, present on admission, troponins negative 3, cardiology following Back pain, present on admission, CTA ruled out dissection Diabetes mellitus, type II, hemoglobin A1c pending Hyperglycemia, secondary to uncontrolled diabetes mellitus Hypertension Morbid obesity: BMI 43.1 PLAN: Cardiology on consult. Await further recommendations Monitor blood pressure. Patient started on lisinopril 5 mg daily per cardiology Obtain hemoglobin A1c Capillary blood glucose accu-checks AC/HS NovoLog sliding scale insulin coverage AC/HS Home meds as appropriate Monitor labs GI prophylaxis: Protonix 40 mg PO Daily DVT prophylaxis: TOSHIA hose to bilateral lower extremities Monitor vital signs and address as appropriate Further recommendations pending patient's course Dr. Mcneal will follow up in regards to patient's back pain on an outpatient basis Nurse practitioner note has been reviewed by physician. Signing provider agrees with the documented findings, assessment, and plan of care.
[2017-11-20] MEDS: INSULIN ASPART 100 UNIT/ML 1 ML 10 ML VIAL SQ SCH ×2 (11:10→13:26)
[2017-11-20 11:36] VITALS: TEMP 97.5
--- NOTE | 2017-11-20 11:49 | ECHOF ---
Referral Reason:cp MEASUREMENTS -------- HEIGHT: 162.6 cm WEIGHT: 113.4 kg BP: IVSd: 1.2 cm (0.6 - 1.1) LVIDd: 3.4 cm (3.9 - 5.3) LVPWd: 1.0 cm (0.6 - 1.1) IVSs: 1.3 cm LVIDs: 2.5 cm LVPWs: 1.3 cm LA Diam: 3.4 cm (2.7 - 3.8) LAESV Index (A-L): 29.12 ml/m Ao Diam: 2.2 cm (2.0 - 3.7) AV Cusp: 1.5 cm (1.5 - 2.6) LA Diam: 3.9 cm (2.7 - 3.8) EPSS: 0.2 cm MV E Steven: 0.84 m/s MV DecT: 225 ms MV A Steven: 0.93 m/s MV E/A Ratio: 0.91 RAP: 5.00 mmHg RVSP: 22.86 mmHg MV EF SLOPE: 82.85 mm/s (70 - 150) MV EXCURSION: 1.85 cm (> 18.000) FINDINGS -------- Sinus rhythm. This was a technically adequate study. The left ventricular size is normal. There is mild concentric left ventricular hypertrophy. Overa ll left ventricular systolic function is normal with, an EF between 55 - 60 %. The right ventricle is normal in size. LA is midly dilated 29-33ml/m2. The right atrial size is normal. The aortic valve is trileaflet, and appears structurally normal. No aortic stenosis or regurgitation. Mild mitral regurgitation is present. No regurgitation noted There is no evidence of pulmonary hypertension. The right ventricular syst olic pressure, as measured by Doppler, is 22.86mmHg. There is no pulmonic regurgitation present. The aortic root size is normal. There is no pericardial effusion. CONCLUSIONS -------- 1. The left ventricular size is normal. 2. There is mild concentric left ventricular hypertrophy. 3. Overall left ventricular systolic function is normal with, an EF between 55 - 60 %. 4. The right ventricle is normal in size. 5. LA is midly dilated 29-33ml/m2. 6. The right atrial size is normal. 7. The aortic valve is trileaflet, and appears structurally normal. No aortic stenosis or regurgitati on. 8. Mild mitral regurgitation is present. 9. No regurgitation noted 10. There is no evidence of pulmonary hypertension. 11. The right ventricular systolic pressure, as measured by Doppler, is 22.86mmHg. 12. There is no pulmonic regurgitation present. 13. The aortic root size is normal. 14. There is no pericardial effusion. DIE MAINTENANCE TECHNICIAN: Kacie Bishop RDCS
[2017-11-20 12:16] LABS: Glucose,Whole Blood 253 mg/dL (75-99)
--- NOTE | 2017-11-20 12:37 | P.CRDCN ---
History of Present Illness Consult date: 11/20/17 Consult reason: chest pain History of present illness: Mrs. Garcia is a pleasant 41-year-old female past medical history significant for diabetes mellitus and obesity. She denies history of coronary artery disease and has never seen a mds manager for any reason. We have been asked to see her in consultation for complaints of chest pain. She states approximately 5 days ago she started having pain in the mid back region. She denies any recent trauma. The pain was a tight sensation in the mid back was worse with movement and with deep inspiration. She presented to the ED 11/16 for evaluation of her back pain and was sent home. Over the last couple days the pain radiated around to the midsternal region. She apparently sneezed really hard and felt an acute sharp sensation in her chest with associated nausea, palpitations and dizziness. She denies shortness of breath, vomiting or diaphoresis. For this reason she came back for re-evaluation. The pain is definitely worse with movement and she appears guarded and stiff on examination. Blood pressure has been elevated since admission as high as 190 systolic. She states she used to take lisinopril in the past but it has been many years since she has taken it. EKG on arrival reveals sinus tachycardia heart rate [address] or T- wave abnormalities. Chest x-ray is negative for acute cardiopulmonary process. CTA negative for pulmonary embolism. Laboratory data reviewed, cardiac enzymes negative 3, hemoglobin 14.7, platelets 323, potassium 4.1, magnesium 1.6, creatinine 0.34, LDL 78. Review of Systems At the time of my exam: CONSTITUTIONAL: Denies fever. Denies chills. EYES: Denies blurred vision. Denies vision changes. Denies eye pain. EARS, NOSE, MOUTH & THROAT: Denies headache. Denies sore throat. Denies ear pain. CARDIOVASCULAR: Denies chest pain. Denies shortness of breath. Denies orthopnea. Denies PND. Denies palpitations. RESPIRATORY: Denies cough. GASTROINTESTINAL: Denies abdominal pain. Denies diarrhea. Denies constipation. Denies nausea. Denies vomiting. MUSCULOSKELETAL: Complains of mid back pain with movement. INTEGUMENTARY: Denies pruitis. Denies rash. NEUROLOGIC: Denies numbness. Denies tingling. Denies weakness. PSYCHIATRIC: Denies anxiety. Denies depression. ENDOCRINE: Denies fatigue. Denies weight change. Denies polydipsia. Denies polyurina. GENITOURINARY: Denies burning, hematuria or urgency with micturation. HEMATOLOGIC: Denies history of anemia. Denies bleeding. Past Medical History Past Medical History: Diabetes Mellitus History of Any Multi-Drug Resistant Organisms: None Reported Past Surgical History: Cholecystectomy Past Anesthesia/Blood Transfusion Reactions: No Reported Reaction Past Psychological History: No Psychological Hx Reported Smoking Status: Former smoker Past Alcohol Use History: None Reported Past Drug Use History: None Reported - Past Family History Mother Family Medical History: Cancer Additional Family Medical History / Comment(s): lung cancer - at 49 Medications and Allergies Home Medications Medication Instructions Recorded Confirmed Type metFORMIN HCL 1,000 mg PO BID 09/04/17 11/19/17 History Allergies Allergy/AdvReac Type Severity Reaction Status Date / Time No Known Allergies Allergy Verified 11/19/17 18:14 Physical Exam Vitals: Vital Signs Temp Pulse Pulse Resp BP BP Pulse Ox 11/20/17 07:36 98.1 F 89 18 144/79 98 11/20/17 03:47 97.8 F 85 16 144/77 94 L 11/20/17 03:17 80 16 11/19/17 23:37 164/79 11/19/17 23:04 95 16 11/19/17 22:11 97.9 F 90 16 169/90 94 L 11/19/17 21:26 97.2 F L 96 18 153/88 98 11/19/17 20:44 92 18 175/87 97 11/19/17 18:38 96 18 191/77 97 11/19/17 17:47 98.2 F 88 18 188/84 98 Intake and Output 11/19/17 11/20/17 11/20/17 22:59 06:59 14:59 Intake Total 149.667 Balance 149.667 Intake: Intake, IV Titration 149.667 Amount Heparin Sod,Pork in 0.45% 149.667 NaCl 25,000 unit In 0.45 % NaCl 1 500ml.bag @ 9.2 UNITS/KG/HR 20.03 mls/hr IV .Q24H ALIA Rx#: [id number] Other: # Voids 1 3 Weight 113.8 kg Blood pressure 144/79 heart rate 89 afebrile maintaining oxygen saturations on room air GENERAL: This is a 41-year-old female in no apparent distress at the time of my examination. HEENT: Head is atraumatic, normocephalic. Pupils are equal, round. Sclerae anicteric. Conjunctivae are clear. Mucous membranes of the mouth are moist. Neck is supple. There is no jugular venous distention. No carotid bruit is heard. LUNGS: Clear to auscultation no wheezes, rales or rhonchi. No chest wall tenderness is noted on palpation or with deep breathing. Reproducible mid back tenderness on palpation. HEART: Regular rate and rhythm without murmurs, rubs or gallops. S1 and S2 heard. ABDOMEN: Soft, nontender. Bowel sounds are heard. No organomegaly noted. EXTREMITIES: No evidence of peripheral edema and no calf tenderness noted. VASCULAR: Radial and dorsalis pedis pulses palpated, no evidence of clubbing. NEUROLOGIC: Patient is awake, alert and oriented x3. Results 11/19/17 18:34 11/19/17 18:34 Cardiac Enzymes 11/19/17 11/19/17 11/20/17 Range/Units 18:34 18:34 00:02 AST 18 (14-36) U/L CK-MB (CK-2) 0.3 <0.2 (0.0-2.4) ng/mL Troponin I <0.012 <0.012 (0.000-0.034) ng/mL 11/20/17 Range/Units 06:11 AST (14-36) U/L CK-MB (CK-2) <0.2 (0.0-2.4) ng/mL Troponin I <0.012 (0.000-0.034) ng/mL Coagulation 11/19/17 11/20/17 Range/Units 18:34 03:34 PT 10.0 (9.0-12.0) sec APTT 23.9 27.4 (22.0-30.0) sec Lipids 11/20/17 Range/Units 06:11 Triglycerides 255 H (<150) mg/dL Cholesterol 187 (<200) mg/dL HDL Cholesterol 58 (40-60) mg/dL CBC 11/19/17 Range/Units 18:34 WBC 8.0 (3.8-10.6) k/uL RBC 5.28 (3.80-5.40) m/uL Hgb 14.7 (11.4-16.0) gm/dL Hct 43.2 (34.0-46.0) % Plt Count 323 (150-450) k/uL Comprehensive Metabolic Panel 11/19/17 Range/Units 18:34 Sodium 137 (137-145) mmol/L Potassium 4.1 (3.5-5.1) mmol/L Chloride 102 (98-107) mmol/L Carbon Dioxide 22 (22-30) mmol/L BUN 11 (7-17) mg/dL Creatinine 0.34 L (0.52-1.04) mg/dL Glucose 314 H (74-99) mg/dL Calcium 9.6 (8.4-10.2) mg/dL AST 18 (14-36) U/L ALT 43 (9-52) U/L Alkaline Phosphatase 88 (38-126) U/L Total Protein 7.1 (6.3-8.2) g/dL Albumin 4.2 (3.5-5.0) g/dL Current Medications Generic Name Dose Route Start Last Admin Trade Name Freq PRN Reason Stop Dose Admin Aspirin 81 mg 11/20/17 09:00 Aspirin PO DAILY [facility] Hydromorphone HCl 2 mg 11/19/17 22:42 11/20/17 05:56 Dilaudid PO 2 mg Q4HR PRN Administration pain Insulin Aspart 0 unit 11/20/17 07:30 Novolog SQ ACHS ALIA Protocol Ketorolac Tromethamine 15 mg 11/20/17 08:07 Toradol IM 11/20/17 08:08 ONCE ONE Miscellaneous Information 1 each 11/19/17 18:03 11/19/17 18:25 Rx Info: Iv Contrast Was Given MISCELLANE 11/21/17 18:04 1 each DAILY PRN Administration Per Protocol Nitroglycerin 0.4 mg 11/19/17 20:44 Nitrostat SUBLINGUAL Q5M PRN Chest Pain Intake and Output 11/19/17 11/20/17 11/20/17 22:59 06:59 14:59 Intake Total 149.667 Balance 149.667 Intake: Intake, IV Titration 149.667 Amount Heparin Sod,Pork in 0.45% 149.667 NaCl 25,000 unit In 0.45 % NaCl 1 500ml.bag @ 9.2 UNITS/KG/HR 20.03 mls/hr IV .Q24H [facility] Rx#: [id number] Other: # Voids 1 3 Weight 113.8 kg 11/19/17 18:34 11/19/17 18:34 Assessment and Plan Assessment: ASSESSMENT 1. Back pain with radiation around to the chest, musculoskeletal in nature. 2. Hypertension, chronic with non-compliance 3. Diabetes mellitus 4. Morbid obesity PLAN Obtain 2D echocardiogram and doppler study to assess cardiac structure and function. Add small dose of lisinopril to daily regimen and recommend she take a baby aspirin daily. Check xray of thoracic back with possible orthopaedic consultation, primary to manage. Check TSH. Nurse Practitioner note has been reviewed, I agree with a documented findings and plan of care. Patient was seen and examined.
[2017-11-20 13:51] VITALS: BP 141/73; PULSE 93
--- NOTE | 2017-11-20 14:11 | XR ---
EXAMINATION TYPE: XR thoracic spine 2V DATE OF EXAM: 11/20/2017 COMPARISON: NONE HISTORY: 41-year-old female with sudden onset back pain TECHNIQUE: 3 views FINDINGS: 12 rib-bearing thoracic vertebral bodies. All pedicles are visualized. Bridging anterior endplate spo ndylosis mid to lower thoracic spine. Vertebral body heights are maintained and alignment is preserve d. IMPRESSION: Bridging anterior endplate spondylosis compatible with DISH in the mid to lower thoracic spine. No ve rtebral compression collapse or malalignment.
[2017-11-20] MEDS ORDERED: KETOROLAC 30 MG/ML 1 ML VIAL IVP ONE (14:14)
--- NOTE | 2017-11-20 14:24 | P.DS ---
Providers Date of admission: 11/19/17 20:45 Expected date of discharge: 11/20/17 Attending physician: Chuy Mcneal Consults: 11/19/17 20:44 Consult Physician Urgent Consulting Provider: [facility] Consult Reason/Comments: Chest pain Do you want consulting provider notified?: Yes Primary care physician: Chuy Mcneal [facility] Course: 41-year-old who presented to the emergency room with a chief complaint of chest pain and back pain. Patient states she has had these symptoms for several days but they do not seem to be improving. The patient states that she was sneezing yesterday and the pain significantly increased. The patient describes the pain as a sharp stabbing pain. The patient did have slight shortness of breath associated with the pain. Her blood pressure was elevated in the emergency room with readings of 188/84 and 191/77 which has since improved. Blood pressure this morning is 144/79. Denied dizziness or lightheadedness. Denies nausea or vomiting. The patient has a history of diabetes mellitus. She has underwent a cholecystectomy. She is a former cigarette smoker. Chest x-ray: Negative for an acute process CTA of the chest: Negative for pulmonary embolus. EKG: Sinus tachycardia. Rate 107. Laboratory data: WBC 8.0. Hemoglobin 14.7. Platelet count 323. Sodium 137. Potassium 4.1. BUN 11. Creatinine 0.34. Glucose 314. Magnesium 1.6. LFTs and pancreatic enzymes within normal limits The patient was admitted to the hospital under the care of Dr. Mcneal for observation. Consultations were placed to cardiology. The patient was started on aspirin and lisinopril per cardiology. No further intervention was ordered per cardiology. Patient underwent echocardiogram revealing ejection fraction of 55-60% and mild mitral regurgitation. Thoracic spine xray was ordered per cardiology and reveals anterior endplate spondylosis compatible with DISH in the mid to lower thoracic spine. No vertebral compression collapse or malalignment. The patient was deemed stable for discharge per Dr. Mcneal. Dr. Mcneal states that he will further evaluate the patient's back pain on an outpatient basis. Prescriptions were sent to the patient's preferred pharmacy for aspirin and lisinopril as ordered per cardiology. DISCHARGE DIAGNOSIS: Chest pain, present on admission, troponins negative 3, cardiology ruled out acute coronary syndrome Back pain, present on admission, CTA ruled out dissection, Thoracic spine x-ray reveals anterior endplate spondylosis compatible with DISH in the mid to lower thoracic spine. No vertebral compression collapse or malalignment. Diabetes mellitus, type II, hemoglobin A1c pending Hyperglycemia, secondary to uncontrolled diabetes mellitus Hypertension Morbid obesity: BMI 43.1 Nurse practitioner note has been reviewed by physician. Signing provider agrees with the documented findings, assessment, and plan of care. Patient Condition at Discharge: Stable Plan - Discharge Summary New Discharge Prescriptions: New Aspirin 81 mg PO DAILY #30 chew Lisinopril [Zestril] 5 mg PO DAILY #30 tab Continue metFORMIN HCL 1,000 mg PO BID Discharge Medication List metFORMIN HCL 1,000 mg PO BID 09/04/17 [History] Aspirin 81 mg PO DAILY #30 chew 11/20/17 [Rx] Lisinopril [Zestril] 5 mg PO DAILY #30 tab 11/20/17 [Rx] Follow up Appointment(s)/Referral(s): Chuy Mcneal DO [Primary Care Provider] - 1 Week Patient Instructions/Handouts: Chest Pain (DC), Back Pain (GEN) Discharge Disposition: HOME SELF-CARE
[2017-11-20 16:11] LABS: Hemoglobin A1C 11.5 % (4.0-6.0)
[2017-11-21] MEDS ORDERED: PANTOPRAZOLE 40 MG TABLET PO SCH (07:30)
== END 2017-11-20 15:27 | disposition home or self-care (01) ==
LOC: EC 17:35 → 3OBS 20:45
PROVIDERS: ADMIT Family Medicine; ATTEND Family Medicine
DX: R07.89 Other chest pain (principal); M54.9 Dorsalgia, unspecified; I10 Essential (primary) hypertension; R06.02 Shortness of breath; R00.2 Palpitations; R42 Dizziness and giddiness; R11.0 Nausea; E11.65 Type 2 diabetes mellitus with hyperglycemia; E66.01 Morbid (severe) obesity due to excess calories; Z68.41 Body mass index [BMI] 40.0-44.9, adult; F17.210 Nicotine dependence, cigarettes, uncomplicated; Z91.19 Patient's noncompliance with other medical treatment and regimen; Z90.49 Acquired absence of other specified parts of digestive tract; Z79.84 Long term (current) use of oral hypoglycemic drugs; Z80.1 Family history of malignant neoplasm of trachea, bronchus and lung; Z82.49 Family history of ischemic heart disease and other diseases of the circulatory system; Z82.41 Family history of sudden cardiac death
CPT/HCPCS: 96375 ×4; 96376 ×2; 96365 ×2; 99285; 96366 ×2; 96372; 36415; 93005; 93306; 83880; 80061; 80053; 84443; 82550 ×2; 82553 ×2; 83690; 83735; 84484 ×2; 85025; 85610; 85730 ×2; 83036; 72070; 71046; 71275; G0378 ×2; J2270; J1644 ×2; Q9967; J2405; J1885

== ENCOUNTER 2023-01-08 10:03 | Emergency (ER) | payer BC ==
--- NOTE | 2023-01-08 11:12 | CT ---
EXAMINATION TYPE: CT brain wo con CT DLP: 1099.4 mGycm, Automated exposure control for dose reduction was used. DATE OF EXAM: 01/08/2023 10:52 AM COMPARISON: None. CLINICAL INDICATION:Female, 47 years old with history of head injury, Head injury TECHNIQUE: Brain: Axial CT images of the brain were obtained with coronal and sagittal reformats created and rev iewed. Contrast used: None. Oral contrast used: None. FINDINGS: Brain: Extra-axial spaces: No abnormal extra-axial fluid collections. Ventricular system: Within normal limits Cerebral parenchyma: No acute intraparenchymal hemorrhage or mass effect. The maza-white junction is well differentiated. Cerebellum: Unremarkable. Mass effect: No evidence of midline shift. Intracranial vasculature: unremarkable Soft tissues: Normal. Calvarium/osseous structures: No depressed skull fracture. Paranasal sinuses and mastoid air cells: Mild scattered paranasal sinus disease. Visualized orbits: Orbital contents are intact. IMPRESSION: No acute intracranial process.
--- NOTE | 2023-01-08 11:21 | ED ---
Fall HPI - General Chief Complaint: Fall Stated Complaint: Fall, Hit Head Time Seen by Provider: 01/08/23 10:30 Source: patient, RN notes reviewed Mode of arrival: wheelchair Limitations: no limitations - History of Present Illness Initial Comments: 47 -year-old female presents emergency Department chief complaint of head injury. Patient states that 2:30 this afternoon she was on her stairs which was 3 stairs states that she was at the bottom went to go backwards and fell striking her head on ceramic tile ciara. Patient states that she's been ex periencing increasing headaches because of this. Patient states that she is light sensitive denies any vomiting states that she did have an episode of nausea. Denies any blood thinners. Denies neck, back pain. - Related Data Home Medications Medication Instructions Recorded Confirmed metFORMIN HCL [Glucophage] 1,000 mg PO BID 09/04/17 11/19/17 Previous Rx's Medication Instructions Recorded Aspirin 81 mg PO DAILY #30 chew 11/20/17 lisinopriL [Zestril] 5 mg PO DAILY #30 tab 11/20/17 Allergies Allergy/AdvReac Type Severity Reaction Status Date / Time No Known Allergies Allergy Verified 01/08/23 10:28 Review of Systems ROS Statement: Those systems with pertinent positive or pertinent negative responses have been documented in the HPI. ROS Other: All systems not noted in ROS Statement are negative. Past Medical History Past Medical History: Diabetes Mellitus History of Any Multi-Drug Resistant Organisms: None Reported Past Surgical History: Cholecystectomy Past Anesthesia/Blood Transfusion Reactions: No Reported Reaction Past Psychological History: No Psychological Hx Reported Past Alcohol Use History: None Reported Past Drug Use History: None Reported - Past Family History Mother Family Medical History: Cancer Additional Family Medical History / Comment(s): lung cancer - at 49 General Exam Limitations: no limitations General appearance: alert, in no apparent distress Head exam: Present: atraumatic, normocephalic. Absent: normal inspection (Hematoma left occipital with tenderness no laceration) Eye exam: Present: normal appearance, PERRL, EOMI. Absent: scleral icterus, conjunctival injection, periorbital swelling ENT exam: Present: normal exam, mucous membranes moist Neck exam: Present: normal inspection, full ROM. Absent: tenderness, meningismus, lymphadenopathy Respiratory exam: Present: normal lung sounds bilaterally. Absent: respiratory distress, wheezes, rales, rhonchi, stridor Cardiovascular Exam: Present: regular rate, normal rhythm, normal heart sounds. Absent: systolic murmur, diastolic murmur, rubs, gallop, clicks Neurological exam: Present: alert, oriented X3, CN II-XII intact, reflexes normal, other (Finger to nose intact bilaterally without overshooting). Absent: motor sensory deficit Course Vital Signs 01/08/23 10:24 Temperature 98.1 F Pulse Rate 102 H Respiratory 18 Rate Blood Pressure 143/71 O2 Sat by Pulse 100 Oximetry Medical Decision Making - Medical Decision Making Was pt. sent in by a medical professional or institution (, OZZY, RAIL MAINTENANCE WORKER, urgent care, hospital, or group home...) When possible be specific @ -No Did you speak to anyone other than the patient for history (EMS, parent, family, police, friend...)? What history was obtained from this source @ -No Did you review nursing and triage notes (agree or disagree)? Why? @ -I reviewed and agree with nursing and triage notes Were old charts reviewed (outside hosp., previous admission, EMS record, old EKG, old radiological studies, urgent care reports/EKG's, group home records)? Report findings @ -No old charts were reviewed Differential Diagnosis (chest pain, altered mental status, abdominal pain women, abdominal pain men, vaginal bleeding, weakness, fever, dyspnea, syncope, he adache, dizziness, GI bleed, back pain, seizure, CVA, palpatations, mental health, musculoskeletal)? @ -Scalp contusion, scalp laceration, intracranial hemorrhage, concussion, this was not inclusive. EKG interpreted by me (3pts min.). @ -None X-rays interpreted by me (1pt min.). @ -None done CT interpreted by me (1pt min.). @ -CT of the brain shows no intracranial hemorrhage, mass effect or skull fracture U/S interpreted by me (1pt. min.). @ -None done What testing was considered but not performed or refused? (CT, X-rays, U/S, labs)? Why? @ -None What meds were considered but not given or refused? Why? @ -None Did you discuss the management of the patient with other professionals (professionals i.e. , OZZY, RAIL MAINTENANCE WORKER, lab, RT, psych nurse, licensed social worker, assistant corporate controller, teacher, strike warfare/missile systems officer, case consultant)? Give summary @ -No Was smoking cessation discussed for >3mins.? @ -No Was critical care preformed (if so, how long)? @ -No Were there social determinants of health that impacted care today? How? (Homelessness, low income, unemployed, alcoholism, drug addiction, transportation, low edu. Level, literacy, decrease access to med. care, usp, rehab)? @ -No Was there de-escalation of care discussed even if they declined (Discuss DNR or withdrawal of care, Hospice)? DNR status @ -No What co-morbidities impacted this encounter? (DM, HTN, Smoking, COPD, CAD, Cancer, CVA, ARF, Chemo, Hep., AIDS, mental health diagnosis, sleep apnea, morbid obesity)? @ -None Was patient admitted / discharged? Hospital course, mention meds given and route, prescriptions, significant lab abnormalities, going to OR and other pertinent info. @ -Discharge patient does have CT given current symptoms CT is negative for acute abnormality. Patient has close head injury we discharged in stable condition with close follow-up. Undiagnosed new problem with uncertain prognosis? @ -No Drug Therapy requiring intensive monitoring for toxicity (Heparin, Nitro, Insulin, Cardizem)? @ -No Were any procedures done? @ -No Diagnosis/symptom? @ -Closed head Injury Acute, or Chronic, or Acute on Chronic? @ -Acute Uncomplicated (without systemic symptoms) or Complicated (systemic symptoms)? @ -Uncomplicated Side effects of treatment? @ -No Exacerbation, Progression, or Severe Exacerbation? @ -No Poses a threat to life or bodily function? How? (Chest pain, USA, NM, pneumonia, PE, COPD, DKA, ARF, appy, cholecystitis, CVA, Diverticulitis, Homicidal, Suicidal, threat to staff... and all critical care pts) @ -No Disposition Clinical Impression: Fall, Closed head injury Disposition: HOME SELF-CARE Condition: Stable Instructions (If sedation given, give patient instructions): Concussion (ED) Additional Instructions: Please return to the Emergency Department if symptoms worsen or any other concerns. Is patient prescribed a controlled substance at d/c from ED?: No Referrals: Chuy Mcneal DO [Primary Care Provider] - 1-2 days Time of Disposition: 11:21
[2023-01-08 11:37] VITALS: BP 131/71; PULSE 95; RESP 16; TEMP 98.3
== END 2023-01-08 11:39 | disposition home or self-care (01) ==
LOC: EC 10:03
DX: S09.90XA Unspecified injury of head, initial encounter (principal); E11.9 Type 2 diabetes mellitus without complications; Z79.84 Long term (current) use of oral hypoglycemic drugs; W18.09XA Striking against other object with subsequent fall, initial encounter
CPT/HCPCS: 70450; 99284

== ENCOUNTER → 2023-05-14 | Outpatient (CLI) | payer BC ==
--- NOTE | 2023-05-16 14:58 | MM ---
Reason for Exam: Screening (asymptomatic). Baseline mammogram. Patient History: Menarche at age 12. Patient has no children. Risk Values: Mayte 5 year model risk: 1.0%. NCI Lifetime model risk: 11.4%. Prior Study Comparison: Patient's first Mammogram. Tissue Density: The breast tissue is heterogeneously dense. This may lower the sensitivity of mammography. Findings: Analyzed By CAD. No discrete abnormality. Overall Assessment: Negative, BI-RAD 1 Management: Screening Mammogram of both breasts in 1 year. A clinical breast exam by your physician is recommended on an annual basis and results should be correlated with mammographic findings. Electronically signed and approved by: Ephraim Villafana M.D. Radiologis
== END | disposition home or self-care (01) ==
LOC: RADMAMWWP 16:43
PROVIDERS: ATTEND Family Medicine
DX: Z12.31 Encounter for screening mammogram for malignant neoplasm of breast (principal)
CPT/HCPCS: 77063; 77067

== ENCOUNTER 2023-06-21 10:10 | Emergency (ER) | payer BC ==
[2023-06-21 10:18] VITALS: RESP 18
[2023-06-21] MEDS ORDERED: SODIUM CHLORIDE 0.9% 1,000 ML IV STA (11:14)
[2023-06-21 11:46] LABS: Basophils % (A) 0 %; Eosinophils # (A) 0.2 k/uL (0-0.7); Eosinophils % (A) 3 %; HCT 39.4 % (34.0-46.0); HGB 13.4 gm/dL (11.4-16.0); Lymphocytes % (A) 28 %; MCH 29.5 pg (25.0-35.0); MCHC 34.1 g/dL (31.0-37.0); MCV 86.5 fL (80.0-100.0); Mean Platelet Volume 7.7; Monocytes # (A) 0.4 k/uL (0-1.0); Monocytes % (A) 5 %; Neutrophils # (A) 4.4 k/uL (1.3-7.7); Neutrophils % (A) 62 %; Platelet Count 296 k/uL (150-450); RBC 4.55 m/uL (3.80-5.40); RDW 13.7 % (11.5-15.5); WBC 7.1 k/uL (3.8-10.6)
[2023-06-21 12:00] LABS: INR 0.9 (<1.2); Partial Thromboplastin Time 23.4 sec (22.0-30.0); Prothrombin Time 9.6 sec (9.0-12.0)
[2023-06-21 12:01] LABS: ALT 39 U/L (4-34); AST 27 U/L (14-36); African American GFR (CKD) >90 (>60 ml/min/1.73 sqM); Albumin 3.9 g/dL (3.5-5.0); Alkaline Phosphatase 66 U/L (38-126); Anion Gap 13 mmol/L; Blood Urea Nitrogen 12 mg/dL (7-17); Calcium 9.2 mg/dL (8.4-10.2); Carbon Dioxide 20 mmol/L (22-30); Chloride 102 mmol/L (98-107); Glucose 226 mg/dL (74-99); Magnesium 1.4 mg/dL (1.6-2.3); Non-African American GFR(CKD) >90 (>60 ml/min/1.73 sqM); Potassium 4.3 mmol/L (3.5-5.1); Sodium 135 mmol/L (137-145); Total Bilirubin 0.5 mg/dL (0.2-1.3); Total Protein 6.7 g/dL (6.3-8.2)
--- NOTE | 2023-06-21 12:01 | XR ---
EXAMINATION TYPE: XR chest 2V DATE OF EXAM: 06/21/2023 COMPARISON: 11/19/2017 HISTORY: Chest pain TECHNIQUE: Frontal and lateral views of the chest are obtained. FINDINGS: There is no focal air space opacity. No evidence for pneumothorax. No pleural effusion. The cardiac silhouette size is within normal limits. The osseous structures are grossly intact. IMPRESSION: 1. No acute cardiopulmonary process.
--- NOTE | 2023-06-21 12:09 | ED ---
Arrhythmia/Palpitations HPI - General Chief Complaint: Arrhythmia/Palpitations Stated Complaint: Tachy Time Seen by Provider: 06/21/23 10:30 Source: patient Mode of arrival: ambulatory Limitations: no limitations - History of Present Illness Initial Comments: 47-year-old female female presents emergency Department with palpitations. States she was at work when she started to feel her heart race. States that she is under significant stress. She started feeling her heart racing. Began having a headache and some fogginess. Had associated shortness of breath. Denies history of cardiac disease. Has had previous cardiac workup and she was told that her heart races due to anxiety. She does take antianxiety medications and states she took him today. She denies history of DVT or PE. No calf pain or swelling. Denies fevers chills or cough. No concern for . No other alleviating, presentation or modifying factors - Related Data Home Medications Medication Instructions Recorded Confirmed metFORMIN HCL [Glucophage] 1,000 mg PO BID 09/04/17 06/21/23 Escitalopram [Lexapro] 10 mg PO DAILY 06/21/23 06/21/23 Semaglutide [Ozempic] 0.5 mg SQ MO 06/21/23 06/21/23 lisinopriL [Prinivil] 10 mg PO DAILY 06/21/23 06/21/23 Previous Rx's Medication Instructions Recorded Magnesium Oxide [Mag-Ox] 400 mg PO BID #60 tablet 06/21/23 Allergies Allergy/AdvReac Type Severity Reaction Status Date / Time No Known Allergies Allergy Verified 06/21/23 13:11 Review of Systems ROS Statement: Those systems with pertinent positive or pertinent negative responses have been documented in the HPI. ROS Other: All systems not noted in ROS Statement are negative. Past Medical History Past Medical History: Diabetes Mellitus History of Any Multi-Drug Resistant Organisms: None Reported Past Surgical History: Cholecystectomy Past Anesthesia/Blood Transfusion Reactions: No Reported Reaction Past Psychological History: No Psychological Hx Reported Smoking Status: Never smoker Past Alcohol Use History: Occasional Past Drug Use History: None Reported - Past Family History Mother Family Medical History: Cancer Additional Family Medical History / Comment(s): lung cancer - at 49 General Exam Limitations: no limitations General appearance: alert, in no apparent distress Head exam: Present: atraumatic, normocephalic, normal inspection Eye exam: Present: normal appearance, PERRL, EOMI. Absent: scleral icterus, conjunctival injection, periorbital swelling ENT exam: Present: normal exam, mucous membranes moist Neck exam: Present: normal inspection. Absent: tenderness, meningismus, lymphadenopathy Respiratory exam: Present: normal lung sounds bilaterally. Absent: respiratory distress, wheezes, rales, rhonchi, stridor Cardiovascular Exam: Present: regular rate, normal rhythm, normal heart sounds. Absent: systolic murmur, diastolic murmur, rubs, gallop, clicks GI/Abdominal exam: Present: soft, normal bowel sounds. Absent: distended, tenderness, guarding, rebound, rigid Extremities exam: Present: normal inspection, full ROM, normal capillary refill. Absent: tenderness, pedal edema, joint swelling, calf tenderness Back exam: Present: normal inspection Neurological exam: Present: alert, oriented X3, CN II-XII intact Psychiatric exam: Present: normal affect, normal mood Skin exam: Present: warm, dry, intact, normal color. Absent: rash Course Vital Signs 06/21/23 06/21/23 06/21/23 10:13 11:15 14:52 Temperature 97.5 F L 98.6 F Pulse Rate 101 H 96 92 Respiratory 18 18 18 Rate Blood Pressure 161/78 154/75 137/75 O2 Sat by Pulse 99 98 98 Oximetry Medical Decision Making - Medical Decision Making Was pt. sent in by a medical professional or institution (, PA, SEISMOGRAPH CHIEF, urgent care, hospital, or halfway...) When possible be specific @ -No Did you speak to anyone other than the patient for history (EMS, parent, family, police, friend...)? What history was obtained from this source @ -I spoke with EMS Did you review nursing and triage notes (agree or disagree)? Why? @ -I reviewed and agree with nursing and triage notes Were old charts reviewed (outside hosp., previous admission, EMS record, old EKG, old radiological studies, urgent care reports/EKG's, halfway records)? Report findings @ -No old charts were reviewed Differential Diagnosis (chest pain, altered mental status, abdominal pain women, abdominal pain men, vaginal bleeding, weakness, fever, dyspnea, syncope, heada shannan, dizziness, GI bleed, back pain, seizure, CVA, palpatations, mental health, musculoskeletal)? @ -Differential Palpitations Ventricular arrhythmias, atrial arrhythmias, myocardial infarction, anemia, thyrotoxicosis, electrolyte imbalance, hypokalemia, pulmonary embolism, pulm onary disease, drugs, alcohol, anxiety, stress.... This is not meant to be an all-inclusive list. EKG interpreted by me (3pts min.). @ -Yes and demonstrates sinus tachycardia with a rate of 100. MI interval 146. QRS 83. QTC of 411. No acute ST segment elevations or depressions X-rays interpreted by me (1pt min.). @ -Yes and demonstrates no acute process CT interpreted by me (1pt min.). @ -None done U/S interpreted by me (1pt. min.). @ -None done What testing was considered but not performed or refused? (CT, X-rays, U/S, labs)? Why? @ -None What meds were considered but not given or refused? Why? @ -None Did you discuss the management of the patient with other professionals (professionals i.e. , PA, SEISMOGRAPH CHIEF, lab, RT, psych nurse, neonatal social worker, rn charge, teacher, weapons officer naval activity, oil field caser)? Give summary @ -No Was smoking cessation discussed for >3mins.? @ -No Was critical care preformed (if so, how long)? @ -No Were there social determinants of health that impacted care today? How? (Homelessness, low income, unemployed, alcoholism, drug addiction, transportation, low edu. Level, literacy, decrease access to med. care, detention, rehab)? @ -No Was there de-escalation of care discussed even if they declined (Discuss DNR or withdrawal of care, Hospice)? DNR status @ -No What co-morbidities impacted this encounter? (DM, HTN, Smoking, COPD, CAD, Canc er, CVA, ARF, Chemo, Hep., AIDS, mental health diagnosis, sleep apnea, morbid obesity)? @ -None Was patient admitted / discharged? Hospital course, mention meds given and route, prescriptions, significant lab abnormalities, going to OR and other pertinent info. @ -Discharge. Upon arrival patient placed into room 9. Thorough history and physical exam was performed. IV access is established and laboratory studies were conducted. Chest x-rays performed. D-dimer negative. Troponin negative. Patient has normal heart rate throughout her stay in the emergency department with occasional PVCs. At this time she is stable for discharge home. Needs to follow up with her primary care doctor and have echo and Holter monitoring performed. Return for any new or worsening symptoms. Patient was agreeable to this plan she was discharged in stable condition Undiagnosed new problem with uncertain prognosis? @ -Yes Drug Therapy requiring intensive monitoring for toxicity (Heparin, Nitro, Insulin, Cardizem)? @ -No Were any procedures done? @ -No Diagnosis/symptom? @ -Acute palpitations Acute, or Chronic, or Acute on Chronic? @ -Acute Uncomplicated (without systemic symptoms) or Complicated (systemic symptoms)? @ -Complicated Side effects of treatment? @ -No Exacerbation, Progression, or Severe Exacerbation? @ -No Poses a threat to life or bodily function? How? (Chest pain, [place], [place], pneumonia, PE, COPD, DKA, ARF, appy, cholecystitis, CVA, Diverticulitis, Homicidal, Suicidal, threat to staff... and all critical care pts) @ -No - Lab Data Result diagrams: 06/21/23 11:40 06/21/23 11:40 Lab Results 06/21/23 06/21/23 06/21/23 Range/Units 11:14 11:14 11:40 WBC 7.1 (3.8-10.6) k/uL RBC 4.55 (3.80-5.40) m/uL Hgb 13.4 (11.4-16.0) gm/dL Hct 39.4 (34.0-46.0) % MCV 86.5 (80.0-100.0) fL MCH 29.5 (25.0-35.0) pg MCHC 34.1 (31.0-37.0) g/dL RDW 13.7 (11.5-15.5) % Plt Count 296 (150-450) k/uL MPV 7.7 Neutrophils % 62 % Lymphocytes % 28 % Monocytes % 5 % Eosinophils % 3 % Basophils % 0 % Neutrophils # 4.4 (1.3-7.7) k/uL Lymphocytes # 2.0 (1.0-4.8) k/uL Monocytes # 0.4 (0-1.0) k/uL Eosinophils # 0.2 (0-0.7) k/uL Basophils # 0.0 (0-0.2) k/uL PT (9.0-12.0) sec INR (<1.2) APTT (22.0-30.0) sec D-Dimer (<0.60) mg/L FEU Sodium (137-145) mmol/L Potassium (3.5-5.1) mmol/L Chloride (98-107) mmol/L Carbon Dioxide (22-30) mmol/L Anion Gap mmol/L BUN (7-17) mg/dL Creatinine (0.52-1.04) mg/dL Est GFR (CKD-EPI)AfAm (>60 ml/min/1.73 sqM) Est GFR (CKD-EPI)NonAf (>60 ml/min/1.73 sqM) Glucose (74-99) mg/dL Calcium (8.4-10.2) mg/dL Magnesium (1.6-2.3) mg/dL Total Bilirubin (0.2-1.3) mg/dL AST (14-36) U/L ALT (4-34) U/L Alkaline Phosphatase (38-126) U/L Troponin I <0.012 (0.000-0.034) ng/mL Total Protein (6.3-8.2) g/dL Albumin (3.5-5.0) g/dL TSH (0.465-4.680) mIU/L Urine Color Colorless Urine Appearance Clear (Clear) Urine pH 5.0 (5.0-8.0) Ur Specific [place] 1.016 (1.001-1.035) Urine Protein Negative (Negative) Urine Glucose (UA) 4+ H (Negative) Urine Ketones Negative (Negative) Urine Blood Trace H (Negative) Urine Nitrite Negative (Negative) Urine Bilirubin Negative (Negative) Urine Urobilinogen <2.0 (<2.0) mg/dL Ur Leukocyte Esterase Negative (Negative) Urine RBC 1 (0-5) /hpf Urine WBC 2 (0-5) /hpf Ur Squamous Epith Cells 2 (0-4) /hpf Urine Bacteria Rare H (None) /hpf Urine Mucus Rare H (None) /hpf 06/21/23 06/21/23 Range/Units 11:40 11:40 WBC (3.8-10.6) k/uL RBC (3.80-5.40) m/uL Hgb (11.4-16.0) gm/dL Hct (34.0-46.0) % MCV (80.0-100.0) fL MCH (25.0-35.0) pg MCHC (31.0-37.0) g/dL RDW (11.5-15.5) % Plt Count (150-450) k/uL MPV Neutrophils % % Lymphocytes % % Monocytes % % Eosinophils % % Basophils % % Neutrophils # (1.3-7.7) k/uL Lymphocytes # (1.0-4.8) k/uL Monocytes # (0-1.0) k/uL Eosinophils # (0-0.7) k/uL Basophils # (0-0.2) k/uL PT 9.6 (9.0-12.0) sec INR 0.9 (<1.2) APTT 23.4 (22.0-30.0) sec D-Dimer 0.31 (<0.60) mg/L FEU Sodium 135 L (137-145) mmol/L Potassium 4.3 (3.5-5.1) mmol/L Chloride 102 (98-107) mmol/L Carbon Dioxide 20 L (22-30) mmol/L Anion Gap 13 mmol/L BUN 12 (7-17) mg/dL Creatinine 0.32 L (0.52-1.04) mg/dL Est GFR (CKD-EPI)AfAm >90 (>60 ml/min/1.73 sqM) Est GFR (CKD-EPI)NonAf >90 (>60 ml/min/1.73 sqM) Glucose 226 H (74-99) mg/dL Calcium 9.2 (8.4-10.2) mg/dL Magnesium 1.4 L (1.6-2.3) mg/dL Total Bilirubin 0.5 (0.2-1.3) mg/dL AST 27 (14-36) U/L ALT 39 H (4-34) U/L Alkaline Phosphatase 66 (38-126) U/L Troponin I (0.000-0.034) ng/mL Total Protein 6.7 (6.3-8.2) g/dL Albumin 3.9 (3.5-5.0) g/dL TSH 1.100 (0.465-4.680) mIU/L Urine Color Urine Appearance (Clear) Urine pH (5.0-8.0) Ur Specific [place] (1.001-1.035) Urine Protein (Negative) Urine Glucose (UA) (Negative) Urine Ketones (Negative) Urine Blood (Negative) Urine Nitrite (Negative) Urine Bilirubin (Negative) Urine Urobilinogen (<2.0) mg/dL Ur Leukocyte Esterase (Negative) Urine RBC (0-5) /hpf Urine WBC (0-5) /hpf Ur Squamous Epith Cells (0-4) /hpf Urine Bacteria (None) /hpf Urine Mucus (None) /hpf Disposition Clinical Impression: Heart palpitations, Hypomagnesemia Disposition: HOME SELF-CARE Condition: Stable Instructions (If sedation given, give patient instructions): Heart Palpitations (ED) Additional Instructions: Please have your primary care doctor or the cardiology office order a Holter monitor. Take magnesium daily. Have them recheck your magnesium levels in a month. Return for any new or worsening symptoms Prescriptions: Magnesium Oxide [Mag-Ox] 400 mg PO BID #60 tablet Is patient prescribed a controlled substance at d/c from ED?: No Referrals: Chuy Mcnael DO [Primary Care Provider] - 1-2 days Time of Disposition: 14:22
[2023-06-21 13:07] LABS: Appearance,Urine Clear (Clear); Bacteria,Urine Rare /hpf; Bilirubin,Urine Negative (Negative); Blood,Urine Trace (Negative); Color,Urine Colorless; Glucose,Urine (UA) 4+ (Negative); Ketones,Urine Negative (Negative); Leukocyte Esterase,Urine Negative (Negative); Mucus,Urine Rare /hpf; Nitrite,Urine Negative (Negative); Protein,Urine Negative (Negative); RBC,Urine 1 /hpf (0-5); Specific Gravity,Urine 1.016 (1.001-1.035); Squamous Epithelial Cell,Urine 2 /hpf (0-4); Urobilinogen,Urine <2.0 mg/dL (<2.0); WBC,Urine 2 /hpf (0-5)
[2023-06-21 15:02] VITALS: BP 137/75; PULSE 92; TEMP 98.6
== END 2023-06-21 14:59 | disposition home or self-care (01) ==
LOC: EC 10:10
DX: R00.2 Palpitations (principal); E83.42 Hypomagnesemia; R00.0 Tachycardia, unspecified; E11.9 Type 2 diabetes mellitus without complications; F41.9 Anxiety disorder, unspecified; Z79.84 Long term (current) use of oral hypoglycemic drugs; Z79.899 Other long term (current) drug therapy; Z90.49 Acquired absence of other specified parts of digestive tract
CPT/HCPCS: 36415; 71046; 80053; 81001; 83735; 84443; 84484; 85025; 85379; 85610; 85730; 93005; 96360; 99285

== ENCOUNTER 2023-11-27 09:05 | Emergency (ER) | payer BC ==
--- NOTE | 2023-11-27 09:21 | ED ---
General Adult HPI - General Chief complaint: Dental/Oral Stated complaint: dental pain Time Seen by Provider: 11/27/23 09:13 Source: patient, RN notes reviewed, old records reviewed Mode of arrival: ambulatory Limitations: no limitations - History of Present Illness Initial comments: Patient is a 47-year-old female presents emergency department complaining of dental pain. Is complaining of right lower molar pain. Has not seen a dentist. Has been ongoing for the last few days has gotten worse. Has not seen a dentist in a while. Denies any fevers or chills. Denies any shortness of breath or difficulty in breathing or swallowing. Does not endorse some abdominal discomfort as well as radiation of the pain along her cheek and jaw. No tongue swelling. No other acute complaints at this time. Presents for further evaluation. - Related Data Home Medications Medication Instructions Recorded Confirmed metFORMIN HCL [Glucophage] 1,000 mg PO BID 09/04/17 06/21/23 Escitalopram [Lexapro] 10 mg PO DAILY 06/21/23 06/21/23 Semaglutide [Ozempic] 0.5 mg SQ MO 06/21/23 06/21/23 lisinopriL [Prinivil] 10 mg PO DAILY 06/21/23 06/21/23 Previous Rx's Medication Instructions Recorded Magnesium Oxide [Mag-Ox] 400 mg PO BID #60 tablet 06/21/23 Amoxic-Pot Clav 875-125Mg 1 tab PO Q12HR 7 Days #14 tab 11/27/23 [Augmentin 875-125] Allergies Allergy/AdvReac Type Severity Reaction Status Date / Time No Known Allergies Allergy Verified 06/21/23 13:11 Review of Systems ROS Statement: Those systems with pertinent positive or pertinent negative responses have been documented in the HPI. Review of Systems: CONST: Denies fever EYES: Denies blurry vision ENT: Endorses dental pain C/V: Denies Chest pain RESP: Denies shortness of breath GI: Denies abdominal pain : Denies dysuria SKIN: Denies rash. MSK: Denies joint pain. NEURO: Denies headache ROS Other: All systems not noted in ROS Statement are negative. Past Medical History Past Medical History: Diabetes Mellitus History of Any Multi-Drug Resistant Organisms: None Reported Past Surgical History: Cholecystectomy Past Anesthesia/Blood Transfusion Reactions: No Reported Reaction Past Psychological History: No Psychological Hx Reported Smoking Status: Never smoker Past Alcohol Use History: Occasional Past Drug Use History: None Reported - Past Family History Mother Family Medical History: Cancer Additional Family Medical History / Comment(s): lung cancer - at 49 General Exam - General Exam Comments Initial Comments: General: Appears in no acute distress. HEAD: Normal with no signs of head trauma. EYES: EOMI. ENT: Patient has posterior lower molar pain with mild erythema at the base of the tooth without any obvious abscess. Tongue is not edematous. Posterior oropharynx within normal limits. No stridor on auscultation. Slight lymph node edema of the mandibular lymph nodes on the right. No other obvious findings on exam. No evidence of Jeremie's angina. RESPIRATORY: No respiratory distress. C/V: Regular rate and rhythm. ABD: Abdomen is nondistended. EXT: No obvious deformity. SKIN: No rashes or lesions observed on exposed skin. NEURO: Alert and oriented. Limitations: no limitations Course Vital Signs 11/27/23 09:06 Temperature 97.7 F Pulse Rate 110 H Respiratory 16 Rate Blood Pressure 172/84 O2 Sat by Pulse 98 Oximetry Medical Decision Making - Medical Decision Making Was pt. sent in by a medical professional or institution (, PA, ORACLE DATABASE ADMINISTRATOR, urgent care, hospital, or penitentiary...) When possible be specific @ -No Did you speak to anyone other than the patient for history (EMS, parent, family, police, friend...)? What history was obtained from this source @ -No Did you review nursing and triage notes (agree or disagree)? Why? @ -I reviewed and agree with nursing and triage notes Were old charts reviewed (outside hosp., previous admission, EMS record, old EKG , old radiological studies, urgent care reports/EKG's, penitentiary records)? Report findings @ -No old charts were reviewed Differential Diagnosis (chest pain, altered mental status, abdominal pain women, abdominal pain men, vaginal bleeding, weakness, fever, dyspnea, syncope, headache, dizziness, GI bleed, back pain, seizure, CVA, palpatations, mental health, musculoskeletal)? @ -Tooth abscess, tooth ache,, cavity, Ludewig's angina. This list is not all inclusive. EKG interpreted by me (3pts min.). @ -None done X-rays interpreted by me (1pt min.). @ -None done CT interpreted by me (1pt min.). @ -None done U/S interpreted by me (1pt. min.). @ -None done What testing was considered but not performed or refused? (CT, X-rays, U/S, labs)? Why? @ -None What meds were considered but not given or refused? Why? @ -None Did you discuss the management of the patient with other professionals (professionals i.e. , PA, ORACLE DATABASE ADMINISTRATOR, lab, RT, psych nurse, social services analyst, automobile damage field appraiser, teacher, chief innovation officer, nurse outreach case manager)? Give summary @ -No Was smoking cessation discussed for >3mins.? @ -No Was critical care preformed (if so, how long)? @ -No Were there social determinants of health that impacted care today? How? (Homelessness, low income, unemployed, alcoholism, drug addiction, transportation, low edu. Level, literacy, decrease access to med. care, senior living, rehab)? @ -No Was there de-escalation of care discussed even if they declined (Discuss DNR or withdrawal of care, Hospice)? DNR status @ -No What co-morbidities impacted this encounter? (DM, HTN, Smoking, COPD, CAD, Cancer, CVA, ARF, Chemo, Hep., AIDS, mental health diagnosis, sleep apnea, morbid obesity)? @ -None Was patient admitted / discharged? Hospital course, mention meds given and route, prescriptions, significant lab abnormalities, going to OR and other pertinent info. @ -Patient presents with tooth ache. No evidence of Ludewig's angina. Exam relatively unremarkable. Vital signs within acceptable limits. No evidence of airway compromise. Tolerating oral secretions. I discussed the results of exam with the patient. She will be discharged home with empiric antibiotics, and will be given a dose of steroid here as well as a starter pack of Tylenol 3's. Instructions to follow-up with dentistry. Patient was in agreement this plan. Instructed good oral hygiene including salt water gargles or mouthwash gargles. I will provide the patient with a prescription for Augmentin. I instructed the patient to follow up with their PCP in the next 1-3 days. I provided contact information for follow up with dentistry. I explained that the patient should return to the emergency department if they experience any worsening symptoms. Strict return precautions were discussed with the patient. The patient expressed understanding of these instructions. I answered all questions that the patient had. The patient was discharged home in good condition with their prescriptions and follow up information. Undiagnosed new problem with uncertain prognosis? @ -No Drug Therapy requiring intensive monitoring for toxicity (Heparin, Nitro, Insulin, Cardizem)? @ -No Were any procedures done? @ -No Diagnosis/symptom? @ -Tooth ache Acute, or Chronic, or Acute on Chronic? @ -Acute Uncomplicated (without systemic symptoms) or Complicated (systemic symptoms)? @ -Uncomplicated Side effects of treatment? @ -No Exacerbation, Progression, or Severe Exacerbation? @ -No Poses a threat to life or bodily function? How? (Chest pain, [place], [place], pneumonia, PE, COPD, DKA, ARF, appy, cholecystitis, CVA, Diverticulitis, Homicidal, Suicidal, threat to staff... and all critical care pts) @ -No Disposition Clinical Impression: Pain, dental Disposition: HOME SELF-CARE Condition: Good Instructions (If sedation given, give patient instructions): Toothache (ED) Prescriptions: Amoxic-Pot Clav 875-125Mg [Augmentin 875-125] 1 tab PO Q12HR 7 Days #14 tab Is patient prescribed a controlled substance at d/c from ED?: No Referrals: Chuy Mcneal DO [Primary Care Provider] - 1-2 days Norris Spann DDS [STAFF PHYSICIAN] - 1-2 days Time of Disposition: 09:21
[2023-11-27 09:24] VITALS: BP 172/84; PULSE 110; RESP 16; TEMP 97.7
[2023-11-27] MEDS: ACET/COD 300 MG/30 MG STARTER PACK 6 TAB BTL PO STA (09:34)
[2023-11-27] MEDS: dexAMETHasone 4 MG TAB PO STA (09:35)
[2023-11-27] MEDS: AMOXIC-POT CLAV 875-125MG 1 EACH TAB PO STA (09:35)
== END 2023-11-27 09:39 | disposition home or self-care (01) ==
LOC: EC 09:05
DX: K08.89 Other specified disorders of teeth and supporting structures (principal); E11.9 Type 2 diabetes mellitus without complications; Z79.84 Long term (current) use of oral hypoglycemic drugs
CPT/HCPCS: 99282; J8540

== ENCOUNTER 2024-02-15 14:38 | Emergency (ER) | payer BC ==
[2024-02-15 15:06] VITALS: RESP 18
--- NOTE | 2024-02-15 15:21 | ED ---
Dizziness HPI - General Source: patient, family, RN notes reviewed Mode of arrival: ambulatory Limitations: no limitations <Claudia Harman - Last Filed: 02/15/24 15:20> <Leigha Uriostegui - Last Filed: 02/23/24 06:53> - General Chief Complaint: Dizziness Stated Complaint: Dizziness Time Seen by Provider: 02/15/24 15:20 - History of Present Illness Initial Comments: Quick note: 48-year-old female presented to the ER with a chief complaint of dizziness. Patient reports while at work she started to feel extremely dizzy. She describes her dizziness as a lightheaded sensation. She does admit to vomiting 4 times and diarrhea. Patient denies any current chest pain, shortness of breath or peripheral edema. (Claudia Harman) 48-year-old female presents emergency department reporting near syncope. She states she was at work when she felt lightheaded. Patient has had 4 episodes of nonbilious, nonbloody vomiting. Also had some diarrhea. Patient did not sustain any injuries as she completely did not lose consciousness. She denies any chest pain or difficulty breathing. No fevers. Symptoms were worse with positional changes. Denies black or bloody stools. No fevers. She is a diabetic and states she has not been checking her sugars regularly. No other alleviating, precipitating or modifying factors (Leigha Uriostegui) - Related Data Home Medications Medication Instructions Recorded Confirmed metFORMIN HCL [Glucophage] 1,000 mg PO BID 09/04/17 06/21/23 Escitalopram [Lexapro] 10 mg PO DAILY 06/21/23 06/21/23 Semaglutide [Ozempic] 0.5 mg SQ MO 06/21/23 06/21/23 lisinopriL [Prinivil] 10 mg PO DAILY 06/21/23 06/21/23 Previous Rx's Medication Instructions Recorded Magnesium Oxide [Mag-Ox] 400 mg PO BID #60 tablet 06/21/23 Amoxic-Pot Clav 875-125Mg 1 tab PO Q12HR 7 Days #14 tab 11/27/23 [Augmentin 875-125] Allergies Allergy/AdvReac Type Severity Reaction Status Date / Time No Known Allergies Allergy Verified 02/15/24 14:42 Review of Systems ROS Other: All systems not noted in ROS Statement are negative. <Claudia Harman - Last Filed: 02/15/24 15:20> ROS Other: All systems not noted in ROS Statement are negative. <Leigha Uriostegui - Last Filed: 02/23/24 06:53> ROS Statement: Those systems with pertinent positive or pertinent negative responses have been documented in the HPI. Past Medical History Past Medical History: Diabetes Mellitus History of Any Multi-Drug Resistant Organisms: None Reported Past Surgical History: Cholecystectomy Past Anesthesia/Blood Transfusion Reactions: No Reported Reaction Past Psychological History: No Psychological Hx Reported Smoking Status: Never smoker Past Alcohol Use History: Occasional Past Drug Use History: None Reported - Past Family History Mother Family Medical History: Cancer Additional Family Medical History / Comment(s): lung cancer - at 49 <Claudia Harman - Last Filed: 02/15/24 15:20> General Exam Limitations: no limitations <Claudia Harman - Last Filed: 02/15/24 15:20> General appearance: alert, in no apparent distress Head exam: Present: atraumatic, normocephalic, normal inspection Eye exam: Present: normal appearance, PERRL, EOMI. Absent: scleral icterus, conjunctival injection, periorbital swelling ENT exam: Present: normal exam, mucous membranes moist Neck exam: Present: normal inspection. Absent: tenderness, meningismus, lymphadenopathy Respiratory exam: Present: normal lung sounds bilaterally. Absent: respiratory distress, wheezes, rales, rhonchi, stridor Cardiovascular Exam: Present: regular rate, normal rhythm, normal heart sounds. Absent: systolic murmur, diastolic murmur, rubs, gallop, clicks GI/Abdominal exam: Present: soft, normal bowel sounds. Absent: distended, tenderness, guarding, rebound, rigid Extremities exam: Present: normal inspection, full ROM, normal capillary refill. Absent: tenderness, pedal edema, joint swelling, calf tenderness Back exam: Present: normal inspection Neurological exam: Present: alert, oriented X3, CN II-XII intact Psychiatric exam: Present: normal affect, normal mood Skin exam: Present: warm, dry, intact, normal color. Absent: rash <Leigha Uriostegui - Last Filed: 02/23/24 06:53> - General Exam Comments Initial Comments: Visual Physical Exam Vital signs reviewed General: Well-appearing, nontoxic, no acute distress. Head: Normocephalic, atraumatic Eyes: PERRLA, EOMI ENT: Airway patent Chest: Nonlabored breathing Skin: No visual rash, normal skin tone Neuro: Alert and oriented 3 Musculoskeletal: No gross abnormalities (Claudia Harman) Course Vital Signs 02/15/24 02/15/24 02/15/24 14:40 17:05 19:27 Temperature 97.7 F Pulse Rate 85 Pulse Rate [ 90 85 Sitting Pulse Oximetery] Pulse Rate [ 88 91 Standing Pulse Oximetery] Pulse Rate [ 85 89 Supine Pulse Oximetery] Respiratory 18 Rate Blood Pressure 147/82 Blood Pressure 139/81 134/84 [Left Arm Sitting] Blood Pressure 115/72 145/82 [Left Arm Standing] Blood Pressure 133/78 145/76 [Left Arm Supine] O2 Sat by Pulse 98 98 98 Oximetry 02/15/24 19:29 Temperature 98.4 F Pulse Rate Pulse Rate [ Sitting Pulse Oximetery] Pulse Rate [ Standing Pulse Oximetery] Pulse Rate [ Supine Pulse Oximetery] Respiratory Rate Blood Pressure Blood Pressure [Left Arm Sitting] Blood Pressure [Left Arm Standing] Blood Pressure [Left Arm Supine] O2 Sat by Pulse Oximetry Medical Decision Making <Claudia Harman - Last Filed: 02/15/24 15:20> - Lab Data Result diagrams: 02/15/24 15:27 02/15/24 15:27 <Leigha Uriostegui - Last Filed: 02/23/24 06:53> - Medical Decision Making I performed the quick note portion of this chart. Electronically signed by Claudia Harman PA-C (Claudia Harman) Was pt. sent in by a medical professional or institution ([facility], [employer], urgent care, hospital, or long-term...) When possible be specific @ -No Did you speak to anyone other than the patient for history (EMS, parent, family, police, friend...)? What history was obtained from this source @ -No Did you review nursing and triage notes (agree or disagree)? Why? @ -I reviewed and agree with nursing and triage notes Were old charts reviewed (outside hosp., previous admission, EMS record, old EKG, old radiological studies, urgent care reports/EKG's, long-term records)? Report findings @ -No old charts were reviewed Differential Diagnosis (chest pain, altered mental status, abdominal pain women, abdominal pain men, vaginal bleeding, weakness, fever, dyspnea, syncope, headache, dizziness, GI bleed, back pain, seizure, CVA, palpatations, mental health, musculoskeletal)? @ -Differential Dizziness: Benign paroxysmal positional Vertigo, Menieres disease, otitis media, acoustic neuroma, vertebrobasilar insufficiency, cerebellar stroke, encephalitis, hypovolemic, arrhythmia, coronary artery syndrome, anemia, this is not meant to be an all-inclusive list EKG interpreted by me (3pts min.). @ -yes and demonstrates sinus rhythm with a rate of 88. DE interval 151. QRS 81. QTc of 416. No acute ST segment elevations or depressions X-rays interpreted by me (1pt min.). @ -Yes and demonstrates no acute process CT interpreted by me (1pt min.). @ -None done U/S interpreted by me (1pt. min.). @ -None done What testing was considered but not performed or refused? (CT, X-rays, U/S, labs)? Why? @ -None What meds were considered but not given or refused? Why? @ -None Did you discuss the management of the patient with other professionals (professionals i.e. , PA, [employer], lab, RT, psych nurse, oncology social worker, plastics nurse, teacher, engineering officer, registered nurse hh case manager)? Give summary @ -No Was smoking cessation discussed for >3mins.? @ -No Was critical care preformed (if so, how long)? @ -No Were there social determinants of health that impacted care today? How? (Homelessness, low income, unemployed, alcoholism, drug addiction, transportation, low edu. Level, literacy, decrease access to med. care, residential, rehab)? @ -No Was there de-escalation of care discussed even if they declined (Discuss DNR or withdrawal of care, Hospice)? DNR status @ -No What co-morbidities impacted this encounter? (DM, HTN, Smoking, COPD, CAD, Cancer, CVA, ARF, Chemo, Hep., AIDS, mental health diagnosis, sleep apnea, morbid obesity)? @ -Diabetes mellitus Was patient admitted / discharged? Hospital course, mention meds given and route, prescriptions, significant lab abnormalities, going to OR and other pertinent info. @ -Upon arrival patient seen and evaluated in hallway 26. Thorough history and physical exam was performed. IV was established. Orthostatics were performed and were positive. Patient was given IV fluids. Laboratory studies are conducted which demonstrate elevated glucose with glucosuria. Patient is reevaluated and feels improved. Repeat orthostatics are performed and are negative. At this time patient would be discharged home. She needs to watch her sugars closely and follow-up with her doctor. May need medication adjustments. Return for any new or worsening symptoms. Patient agreeable to plan was discharged in stable condition Undiagnosed new problem with uncertain prognosis? @ -No Drug Therapy requiring intensive monitoring for toxicity (Heparin, Nitro, Insulin, Cardizem)? @ -No Were any procedures done? @ -No Diagnosis/symptom? @ -Near syncope, orthostatic hypotension, hyperglycemia Acute, or Chronic, or Acute on Chronic? @ -Acute Uncomplicated (without systemic symptoms) or Complicated (systemic symptoms)? @ -complicated Side effects of treatment? @ -No Exacerbation, Progression, or Severe Exacerbation? @ -No Poses a threat to life or bodily function? How? (Chest pain, [place], [place], pneumonia, PE, COPD, DKA, ARF, appy, cholecystitis, CVA, Diverticulitis, Homicidal, Suicidal, threat to staff... and all critical care pts) @ -No (Leigha Uriostegui) - Lab Data Lab Results 02/15/24 02/15/24 02/15/24 Range/Units 15:27 15:27 15:27 WBC 6.6 (3.8-10.6) k/uL RBC 4.82 (3.80-5.40) m/uL Hgb 13.4 (11.4-16.0) gm/dL Hct 41.0 (34.0-46.0) % MCV 85.1 (80.0-100.0) fL MCH 27.7 (25.0-35.0) pg MCHC 32.6 (31.0-37.0) g/dL RDW 13.2 (11.5-15.5) % Plt Count 271 (150-450) k/uL MPV 6.9 Neutrophils % 60 % Lymphocytes % 28 % Monocytes % 6 % Eosinophils % 3 % Basophils % 1 % Neutrophils # 4.0 (1.3-7.7) k/uL Lymphocytes # 1.9 (1.0-4.8) k/uL Monocytes # 0.4 (0-1.0) k/uL Eosinophils # 0.2 (0-0.7) k/uL Basophils # 0.1 (0-0.2) k/uL Sodium 135 L (137-145) mmol/L Potassium 3.9 (3.5-5.1) mmol/L Chloride 105 (98-107) mmol/L Carbon Dioxide 26 (22-30) mmol/L Anion Gap 4 mmol/L BUN 11 (7-17) mg/dL Creatinine 0.36 L (0.52-1.04) mg/dL Est GFR (CKD-EPI)AfAm >90 (>60 ml/min/1.73 sqM) Est GFR (CKD-EPI)NonAf >90 (>60 ml/min/1.73 sqM) Glucose 272 H (74-99) mg/dL Plasma Lactic Acid Jonnie (0.7-2.0) mmol/L Calcium 9.0 (8.4-10.2) mg/dL Total Bilirubin 0.6 (0.2-1.3) mg/dL AST 24 (14-36) U/L ALT 44 H (4-34) U/L Alkaline Phosphatase 83 (38-126) U/L Total Protein 6.8 (6.3-8.2) g/dL Albumin 4.2 (3.5-5.0) g/dL Urine Color Light Yellow Urine Appearance Clear (Clear) Urine pH 6.0 (5.0-8.0) Ur Specific [place] 1.038 H (1.001-1.035) Urine Protein 1+ H (Negative) Urine Glucose (UA) 4+ H (Negative) Urine Ketones Negative (Negative) Urine Blood Small H (Negative) Urine Nitrite Negative (Negative) Urine Bilirubin Negative (Negative) Urine Urobilinogen <2.0 (<2.0) mg/dL Ur Leukocyte Esterase Negative (Negative) Urine RBC 7 H (0-5) /hpf Urine WBC 1 (0-5) /hpf Ur Squamous Epith Cells 4 (0-4) /hpf Urine Mucus Rare H (None) /hpf Influenza Type A (PCR) (Not Detectd) Influenza Type B (PCR) (Not Detectd) RSV (PCR) (Not Detectd) SARS-CoV-2 (PCR) (Not Detectd) 02/15/24 02/15/24 Range/Units 15:27 15:27 WBC (3.8-10.6) k/uL RBC (3.80-5.40) m/uL Hgb (11.4-16.0) gm/dL Hct (34.0-46.0) % MCV (80.0-100.0) fL MCH (25.0-35.0) pg MCHC (31.0-37.0) g/dL RDW (11.5-15.5) % Plt Count (150-450) k/uL MPV Neutrophils % % Lymphocytes % % Monocytes % % Eosinophils % % Basophils % % Neutrophils # (1.3-7.7) k/uL Lymphocytes # (1.0-4.8) k/uL Monocytes # (0-1.0) k/uL Eosinophils # (0-0.7) k/uL Basophils # (0-0.2) k/uL Sodium (137-145) mmol/L Potassium (3.5-5.1) mmol/L Chloride (98-107) mmol/L Carbon Dioxide (22-30) mmol/L Anion Gap mmol/L BUN (7-17) mg/dL Creatinine (0.52-1.04) mg/dL Est GFR (CKD-EPI)AfAm (>60 ml/min/1.73 sqM) Est GFR (CKD-EPI)NonAf (>60 ml/min/1.73 sqM) Glucose (74-99) mg/dL Plasma Lactic Acid Jonnie 1.2 (0.7-2.0) mmol/L Calcium (8.4-10.2) mg/dL Total Bilirubin (0.2-1.3) mg/dL AST (14-36) U/L ALT (4-34) U/L Alkaline Phosphatase (38-126) U/L Total Protein (6.3-8.2) g/dL Albumin (3.5-5.0) g/dL Urine Color Urine Appearance (Clear) Urine pH (5.0-8.0) Ur Specific [place] (1.001-1.035) Urine Protein (Negative) Urine Glucose (UA) (Negative) Urine Ketones (Negative) Urine Blood (Negative) Urine Nitrite (Negative) Urine Bilirubin (Negative) Urine Urobilinogen (<2.0) mg/dL Ur Leukocyte Esterase (Negative) Urine RBC (0-5) /hpf Urine WBC (0-5) /hpf Ur Squamous Epith Cells (0-4) /hpf Urine Mucus (None) /hpf Influenza Type A (PCR) Not Detected (Not Detectd) Influenza Type B (PCR) Not Detected (Not Detectd) RSV (PCR) Not Detected (Not Detectd) SARS-CoV-2 (PCR) Not Detected (Not Detectd) Disposition <Claudia Harman - Last Filed: 02/15/24 15:20> Is patient prescribed a controlled substance at d/c from ED?: No Time of Disposition: 18:43 <Leigha Uriostegui - Last Filed: 02/23/24 06:53> Clinical Impression: Dehydration, Hyperglycemia, Near syncope, Glucosuria, Orthostatic hypotension Disposition: HOME SELF-CARE Condition: Stable Instructions (If sedation given, give patient instructions): Near Syncope (ED) Additional Instructions: Please keep a log of your blood sugars 2-3 times per day. Follow-up with your primary care doctor as I do feel that they need to increase your diabetic medications. Stay well-hydrated. May take Imodium for any diarrhea. Return for any new or worsening symptoms Referrals: Chuy Mcneal DO [Primary Care Provider] - 1-2 days
[2024-02-15 16:00] LABS: Basophils # (A) 0.1 k/uL (0-0.2); Basophils % (A) 1 %; Eosinophils # (A) 0.2 k/uL (0-0.7); Eosinophils % (A) 3 %; HGB 13.4 gm/dL (11.4-16.0); Lymphocytes # (A) 1.9 k/uL (1.0-4.8); Lymphocytes % (A) 28 %; MCH 27.7 pg (25.0-35.0); MCHC 32.6 g/dL (31.0-37.0); MCV 85.1 fL (80.0-100.0); Mean Platelet Volume 6.9; Monocytes # (A) 0.4 k/uL (0-1.0); Monocytes % (A) 6 %; Neutrophils % (A) 60 %; Platelet Count 271 k/uL (150-450); RBC 4.82 m/uL (3.80-5.40); RDW 13.2 % (11.5-15.5); WBC 6.6 k/uL (3.8-10.6)
[2024-02-15 16:05] LABS: ALT 44 U/L (4-34); AST 24 U/L (14-36); African American GFR (CKD) >90 (>60 ml/min/1.73 sqM); Albumin 4.2 g/dL (3.5-5.0); Alkaline Phosphatase 83 U/L (38-126); Anion Gap 4 mmol/L; Blood Urea Nitrogen 11 mg/dL (7-17); Carbon Dioxide 26 mmol/L (22-30); Chloride 105 mmol/L (98-107); Glucose 272 mg/dL (74-99); Non-African American GFR(CKD) >90 (>60 ml/min/1.73 sqM); Potassium 3.9 mmol/L (3.5-5.1); Sodium 135 mmol/L (137-145); Total Bilirubin 0.6 mg/dL (0.2-1.3); Total Protein 6.8 g/dL (6.3-8.2)
[2024-02-15 16:16] LABS: Appearance,Urine Clear (Clear); Bilirubin,Urine Negative (Negative); Blood,Urine Small (Negative); Color,Urine Light Yellow; Glucose,Urine (UA) 4+ (Negative); Ketones,Urine Negative (Negative); Leukocyte Esterase,Urine Negative (Negative); Mucus,Urine Rare /hpf; Nitrite,Urine Negative (Negative); Protein,Urine 1+ (Negative); RBC,Urine 7 /hpf (0-5); Specific Gravity,Urine 1.038 (1.001-1.035); Squamous Epithelial Cell,Urine 4 /hpf (0-4); Urobilinogen,Urine <2.0 mg/dL (<2.0); WBC,Urine 1 /hpf (0-5)
--- NOTE | 2024-02-15 16:51 | XR ---
EXAMINATION TYPE: XR chest 2V DATE OF EXAM: 02/15/2024 COMPARISON: 06/21/2023 HISTORY: 48-year-old female dizziness TECHNIQUE: PA and lateral views FINDINGS: Heart normal size. Aortopulmonary vasculature within normal limits. Mild interstitial prominence is u nchanged. No consolidation or pleural effusion. Mild hyperinflation. [facility] throughout the mid and lowe r thoracic spine. IMPRESSION: Chronic changes, possible COPD or underlying chronic bronchitis/asthma. No definite acute process.
[2024-02-15] MEDS: SODIUM CHLORIDE 0.9% 1,000 ML IV ONE (17:43)
[2024-02-15 19:42] VITALS: BP 145/76; PULSE 89; TEMP 98.4
== END 2024-02-15 19:30 | disposition home or self-care (01) ==
LOC: EC 14:38
DX: E11.65 Type 2 diabetes mellitus with hyperglycemia (principal); E86.0 Dehydration; I95.1 Orthostatic hypotension
CPT/HCPCS: 36415; 71046; 80053; 81001; 83605; 85025; 87636; 93005; 96360; 99284